=== PATIENT | female | born 1930 | race Caucasian/White ===

== ENCOUNTER → 2016-04-11 | Outpatient (CLI) | payer OTHER ==
[~2016-04-11] MED LIST: AMLODIPINE BESYL5 MG PO; ANORO ELLIPTA1 POW IH; AVAPRO150 M1 PO; Amaryl2 MG PO; BAYER ASPIRIN C81 MG PO; DARVOCET N 1001 TAB PO; DOXYCYCLINE100 MG PO; FLAGYL500 MG PO; GLIMEPIRIDE2 MG PO; HYDR25T PO; JANUVIA100 MG PO; METRONIDAZOLE500 M1 PO; NEURONTIN300 MG PO; NIFEDIPINE ER30 M1 PO; NORVASC10 MG PO; PHENERGAN25 M3 PO; PLAQUENIL200 MG PO; PRAVASTATIN SOD20 MG PO; PRILOSEC20 M1 PO; TOPROL XL50 M1 PO; ZOFRAN4 MG PO; [UNRECOGNIZED DRUG - OTHER] PO
--- NOTE | ~2016-04-11 | PR ---
[place], [place] PROGRESS NOTE NAME: MUMTAZ BRAR [facility] #: [id number] UNIT #: [id number] ROOM: DOCTOR: MATT TysonJANELLE BIRTHDATE: [birth year] DOS: 04/11/2016 CHIEF COMPLAINT: Followup of right great toe ulcer. HISTORY OF PRESENT ILLNESS: The elements: The location is the right great toe at the very tip. She has had it for a couple of months now. She has been coming to the [facility] for 2 weeks now. Initially, there was discomfort associated with it and this is much improved since she has been coming. She thought that the wound appeared to be healed, but she was concerned that when she took a shower today she noted some bloody drainage on her dressing and it appears to be at the bottom of her toe instead of where the initial wound was. She has also noted that the callus has built up quite a bit around it and she is uncomfortable about this. Otherwise, she offers no specific complaints. She did try to get the toe protectors that were suggested to her; however, it is really too small for her toe and she is unable to wear it. PHYSICAL EXAMINATION: VITAL SIGNS: Today shows vital signs are stable. Blood pressure is 160/60, pulse of 60, respirations 16, temperature is 97.8. EXTREMITIES: The wound is essentially almost healed. It is 0.1 x 0.1 x 0.1. There is still some surrounding callus, but it does not appear to be open presently and at the plantar aspect of the toe, there is a small what appears to be possibly an abrasion from tape versus her accidentally bumping it somehow but it is not really open presently, but it looks like it had blood a little bit before. The area was debrided with a #15 blade for just nonviable tissue. Callus was removed only and the wound still appears to be healed underneath it. This is just a selective debridement only. The instrument utilized was a #15 blade. The patient tolerated the procedure well. There was no bleeding at all. ASSESSMENT AND PLAN: Diabetic toe ulceration which appears to be presently healed. She still continues to have recurrent callus formation. She was wearing an opened shoe today, but this is not practical due to the weather, which is very cold at the present time and raining and soon we will have snow, so I did advise her to try to get fitted for diabetic footwear. A prescription was written for this, so she will try to get this obtained. I tried to accommodate the gel cushion that she had bought; however, when I tried to stretch it out or make it a little bit bigger it just became too big and then unpractical for her to use it so in the meantime, we will just keep the area clean, use some Aquaphor for dry skin and keep it protected with a foam just to help prevent trauma to the area and hopefully recurrent callus formation. The patient is to keep this area evaluated every day and we will follow up in 1 week. I suspect she will be discharged next week. [place], [place] PROGRESS NOTE NAME: MUMTAZ BRAR UNIT #: [id number] ROOM: DOCTOR: JANELLE GUTIERREZ M.D. BIRTHDATE: [birth year] JANELLE GUTIERREZ MD CM:SOFY [id number] JANELLE GUTIERREZ M.D. 04/12/16 1247 interface
== END ==
LOC: WOUNDCARE 12:26
DX: E11.621 Type 2 diabetes mellitus with foot ulcer (principal); L97.511 Non-pressure chronic ulcer of other part of right foot limited to breakdown of skin; L84 Corns and callosities

== ENCOUNTER → 2016-04-18 | Outpatient (CLI) | payer OTHER ==
--- NOTE | ~2016-04-18 | PR ---
[place], [place] PROGRESS NOTE NAME: MUMTAZ BRAR [facility] #: [id number] UNIT #: [id number] ROOM: DOCTOR: MATT TysonJANELLE BIRTHDATE: [birth year] DOS: 04/18/2016 Wound care followup. CHIEF COMPLAINT: Followup of right great toe ulcer. HISTORY OF PRESENT ILLNESS: Elements: The location is tip the right great toe. She has had this ulcer for a couple of months now. She has been coming to the Wound Clinic for 3 weeks. The ulcer had been steadily improving, and there is just a little bit of callus noted last week, which was paired down for her. She states that her ulcer is looking quite well. She has not had a buildup of callus as before. She is taking good care of it and keeping it moisturized. She does cover with a foam-type dressing that she uses. This seems to protect her toe. She has, however, noticed some slight redness and a little bit of discomfort with the toe, and she said she had tried to obtain diabetic shoes from [facility]. They are no longer available for this. So she has been using a pair of Sketchers, which she feels are working fairly well. PHYSICAL EXAMINATION: She is afebrile, pulse is 66, respirations 16, blood pressure is a little high at 180/60. The wounds look good. It is not open. There is really no callus. There is no open area. The toe however, has some mild edema and mild erythema. It is not acutely tender to touch, but it is slightly warm, and she has noticed the redness as I stated above. No debridement was done. ASSESSMENT AND PLAN: The ulcer has healed. The callus is stable. No procedure was done today; however, I am concerned about the redness that seemed a little bit more prominent on this visit than it had in the past. There may be some mild underlying cellulitis of the toe. I would like to treat the patient with antibiotics. I did discuss this with her. She has had problems with doxycycline in the past, so we will avoid this, and we will start Keflex 500 t.i.d. just for a week. She does take probiotics daily, and I did ask her to make sure she watches it for any signs of increased redness or pain. She is to report to us immediately. Otherwise, she does tend to keep the toe protected with a protective foam type dressing during the day, but I do want her to take it off at night and not to have anything on the toe. Followup is in one week. [place], [place] PROGRESS NOTE NAME: MUMTAZ BRAR UNIT #: [id number] ROOM: DOCTOR: JANELLE GUTIERREZ M.D. BIRTHDATE: [birth year] JANELLE GUTIERREZ MD CM:SOFY [id number] 5 JANELLE GUTIERREZ M.D. 04/19/165 interface
== END ==
LOC: WOUNDCARE 01:22
DX: E11.621 Type 2 diabetes mellitus with foot ulcer (principal); L97.511 Non-pressure chronic ulcer of other part of right foot limited to breakdown of skin; L84 Corns and callosities

== ENCOUNTER → 2017-03-15 | Outpatient (CLI) | payer MEDICARE | END | disposition home or self-care (01) | LOC: US 13:49 | DX: I65.23 Occlusion and stenosis of bilateral carotid arteries (principal); I25.10 Atherosclerotic heart disease of native coronary artery without angina pectoris; E04.1 Nontoxic single thyroid nodule; I77.9 Disorder of arteries and arterioles, unspecified ==

== ENCOUNTER 2017-04-02 16:52 | Inpatient (IN) | payer MEDICARE ==
[~2017-04-02] VITALS: Ht 152.4 cm; Wt 52.8 kg
--- NOTE | ~2017-04-02 | CON ---
[place], [place] REPORT OF CONSULTATION [id number] UNIT #: [id number] ROOM: 510 DOCTOR: WANDA CARDZOA MD BIRTHDATE: [birth year] DOS: 04/03/2017 HISTORY OF PRESENT ILLNESS: This is an 86-year-old -Polish woman with history of atrial fibrillation for which she has never been anticoagulated. She has chronic GERD, CAD, essential hypertension, hyponatremia, chronic anemia, rheumatoid arthritis, and type 2 diabetes mellitus. She had hysterectomy in the remote past and has not had a heart catheterization in the remote past as well. She has never smoked cigarettes, does not use alcoholic beverages. She was admitted to the Emergency Department because of increasing shortness of breath for about a month or so, which got worse a couple of days prior to this admission. She has a cough which is rather harsh, but she has not been able to expectorate any sputum. She has no fever or chills. No orthopnea. She has slight swelling in the legs. There has not been any palpitations. In fact, she is not aware of her heart beating irregularly. No nausea, vomiting or blood in the stool. She has never had any dark stools either and she has no tendency to fall. She lives at home and is pretty active lady. HOME MEDICATIONS: Include Anoro Ellipta, amlodipine, gabapentin, glimepiride, Plaquenil, Avapro, omeprazole, pravastatin, promethazine and Januvia. She has never been on anticoagulant. PHYSICAL EXAMINATION: GENERAL: The patient is very pleasant, alert. She is slim, alert, oriented. Her complexion looks fine. NECK: JVP is normal. AJR is positive. There is a loud left carotid bruit. HEART: There is no cardiomegaly, no murmurs are present. EXTREMITIES: Pedal pulses are well appreciated. There is a trace pretibial edema. RESPIRATORY: She is mildly tachypneic and has oxygen on. Percussion is normal. Auscultation reveals a lot of crackles, rhonchi, inspiratory, and expiratory wheezes. LABORATORY DATA: BUN 31, creatinine 0.91, potassium is 133. Sodium 141 and magnesium 1.4. Hemoglobin is 9.1 mg/dL. Troponin I level was 0.284, 0.457, and 0.814. DIAGNOSTIC STUDIES: An ECG showed atrial fibrillation with ventricular rate around 99 beats per minute and normal ST-T waves. Monitor has shown tachycardia as well. IMPRESSION: 1. Possible non-ST elevation, acute myocardial infarction. However, she probably has type 2 myocardial infarction, which is due to supply demand imbalance, which may have been caused by a chest infection, hypoxia, tachycardia as well as hypertension. Blood pressure has been rather high. 2. She has acute chest infection. 3. She has mildly elevated jugular venous pressure, but the chest x-ray do not show any pulmonary edema. 4. Her symptoms are most likely due to acute chest infection and atrial [place], [place] REPORT OF CONSULTATION NAME: MUMTAZ BRAR UNIT #: [id number] ROOM: [facility] DOCTOR: WANDA CARDOZA MD BIRTHDATE: [birth year] fibrillation with rapid ventricular rate. RECOMMENDATIONS: 1. Adding calcium channel yoni such as verapamil and diltiazem to control the rate is a good idea. 2. An echocardiogram should be performed and I think it is probably a good idea to perform Lexiscan Cardiolite study in this lady, who has significant carotid artery disease. 3. She has significant carotid artery disease by an ultrasound done on 03/15/2017 which showed 50-69 stenosis on the left side. I thank you on behalf of Dr. Saavedra. WANDA CARDOZA MD CM:CONSTR:REPORT OF CONSULTATION 1048 04/03/172118 interface OSKAR SAAVEDRA MD
--- NOTE | ~2017-04-02 | EKG ---
[place], [place] ELECTROCARDIOGRAM REPORT NAME: MUMTAZ BRAR UNIT #: [id number] ROOM: [facility] DOCTOR: LIZA SHELDON,KELSI BIRTHDATE: [birth year] DOS: 04/02/2017 TIME: 1709. IMPRESSION: 1. Atrial fibrillation with controlled ventricular rate. 2. Nonspecific ST-T changes. 3. Possible left ventricular hypertrophy. 4. Normal QT interval. KELSI DE JESUS MD CM:EKGRPT:ELECTROCARDIOGRAM REPORT [id number] KELSI DE JESUS MD
--- NOTE | ~2017-04-02 | ST ---
[place], [place] EXERCISE STRESS TEST REPORT NAME: MUMTAZ BRAR UNIT #: [id number] ROOM: 510 DOCTOR: OSKAR YAO MD BIRTHDATE: [birth year] DOS: LEXISCAN PORTION OF THE LEXISCAN CARDIOLITE Baseline cardiogram, atrial fibrillation with a controlled ventricular response 0.4 mg, Lexiscan duration of 10 seconds. With Lexiscan, the patient became a little nauseous. No new EKG changes. Blood pressure and heart rate response was normal. Nuclear images will be reported separately. OSKAR YAO MD CM:STRESS:EXERCISE STRESS TEST REPORT [id number] OSKAR YAO MD
--- NOTE | ~2017-04-02 | PR ---
[place], [place] PROGRESS NOTE [id number] UNIT #: [id number] ROOM: 510 DOCTOR: WANDA CARDOZA MD BIRTHDATE: [birth year] DOS: 04/04/[address] Saavedra. SUBJECTIVE: I saw this patient yesterday and she has mildly elevated troponin I level and has acute chest infection, atrial fibrillation. The rate is now controlled. She has no palpitations, has not had any dizziness or orthopnea. Her appetite is poor. OBJECTIVE: GENERAL: She looks well, alert, oriented, complexion is fine. VITAL SIGNS: Pulse is irregular at 84 beats per minute, blood pressure is 157/64. NECK: JVP is normal. LUNGS: She has lot of crackles and rhonchi in both lungs. She has some wheezing. EXTREMITIES: No edema in the lower extremities. IMPRESSION: This patient probably has had non-ST elevation acute myocardial infarction and possible type 2 myocardial infarction. Because of significant atherosclerosis in the carotid arteries, the likelihood of coronary artery disease is significant, therefore a Lexiscan Cardiolite has been scheduled for tomorrow morning, which Dr. Saavedra will perform. No new recommendations. WANDA CARDOZA MD CM:PNTRANS 1206 1356 WANDA CARDOZA MD 04/04/17 1356 interface
[2017-04-02 17:01] VITALS: BP 174/69
[2017-04-02 17:49] LABS: BASO % 0.1 % (0.0-1.0); EOS % 0.1 % (1.0-4.0); HEMATOCRIT 27.6 % (37.0-47.0); HEMOGLOBIN 9.1 g/dl (12.0-16.0); LYMPH # 1.1 10*3/uL (1.3-4.4); LYMPH % 13.8 % (27.0-41.0); MEAN CELL VOLUME 92.9 fl (81.0-99.0); MEAN CORPUSCULAR HGB 30.6 pg (27.0-31.0); MEAN PLATELET VOLUME 10.7 fl (9.6-12.3); MONO # 0.5 10*3/uL (0.1-1.0); MONO % 5.5 % (3.0-9.0); NEUT # 6.5 10*3/uL (2.3-7.9); NEUT % 79.6 % (47.0-73.0); PLATELET COUNT AUTOMATED 189 10*3/uL (130-400); RED BLOOD COUNT 2.97 10*6/uL (4.10-5.10); RED CELL DISTRI WIDTH 13.1 % (0-14.5); WHITE BLOOD COUNT 8.2 10*3/uL (4.8-10.8)
[2017-04-02 17:58] LABS: ACT PARTIAL THROMBO TIME 25.1 SECONDS (20.8-31.5)
[2017-04-02 18:06] LABS: ALBUMIN 2.6 gm/dl (3.1-4.5); ALKALINE PHOSPHATASE 34 U/L (45-117); BUN 31 mg/dl (7-24); CHLORIDE 102 mmol/L (98-107); CREATININE 0.91 mg/dL (0.55-1.02); LIPASE 313 U/L (73-393); POTASSIUM 4.1 mmol/L (3.5-5.1); SGOT/AST 23 IU/L (3-35); SGPT/ALT 23 U/L (12-78); SODIUM 133 mmol/L (136-145); TOTAL PROTEIN 6.3 gm/dL (6.4-8.2)
[2017-04-02 19:12] VITALS: BP 181/71
[2017-04-02 19:27] VITALS: BP 176/68
[2017-04-02 19:43] VITALS: BP 152/55
[2017-04-02 20:00] VITALS: BP 152/55
[2017-04-03] VITALS: BP 130/56
[2017-04-03 05:42] LABS: BUN 31 mg/dl (7-24); CHLORIDE 100 mmol/L (98-107); CHOLESTEROL 160 mg/dL (<200); HDL CHOLESTEROL 60 mg/dl (40-60); LDL CHOLESTEROL 81 mg/dL (9-159); POTASSIUM 3.6 mmol/L (3.5-5.1); SODIUM 136 mmol/L (136-145); TRIGLYCERIDES 95 mg/dl (<150); VLDL CHOLESTEROL 19 mg/dL (6-40)
[2017-04-03 06:11] LABS: BASO % 0.1 % (0.0-1.0); EOS % 0.3 % (1.0-4.0); HEMATOCRIT 29.4 % (37.0-47.0); HEMOGLOBIN 9.8 g/dl (12.0-16.0); LYMPH # 2.7 10*3/uL (1.3-4.4); LYMPH % 29.8 % (27.0-41.0); MEAN CELL VOLUME 93.3 fl (81.0-99.0); MEAN CORPUSCULAR HGB 31.1 pg (27.0-31.0); MEAN CORPUSCULAR HGB CONC 33.3 g/dl (33.0-37.0); MEAN PLATELET VOLUME 11.4 fl (9.6-12.3); MONO # 0.6 10*3/uL (0.1-1.0); MONO % 6.1 % (3.0-9.0); NEUT # 5.7 10*3/uL (2.3-7.9); NEUT % 63.3 % (47.0-73.0); PLATELET COUNT AUTOMATED 207 10*3/uL (130-400); RED BLOOD COUNT 3.15 10*6/uL (4.10-5.10)
[2017-04-03 07:43] LABS: VITAMIN D, 25-HYDROXY 28.2 ng/mL (30-100)
[2017-04-03 08:00] VITALS: BP 143/61
[2017-04-03 12:00] VITALS: BP 120/65
[2017-04-03 16:00] VITALS: BP 144/59
[2017-04-03 20:00] VITALS: BP 160/60
[2017-04-03 20:30] VITALS: BP 158/62
[2017-04-04 00:15] VITALS: BP 166/70
[2017-04-04 06:57] LABS: BASO % 0.2 % (0.0-1.0); EOS % 0.2 % (1.0-4.0); HEMATOCRIT 28.4 % (37.0-47.0); HEMOGLOBIN 9.6 g/dl (12.0-16.0); LYMPH # 2.3 10*3/uL (1.3-4.4); LYMPH % 34.7 % (27.0-41.0); MEAN CELL VOLUME 91.3 fl (81.0-99.0); MEAN CORPUSCULAR HGB 30.9 pg (27.0-31.0); MEAN CORPUSCULAR HGB CONC 33.8 g/dl (33.0-37.0); MEAN PLATELET VOLUME 11.2 fl (9.6-12.3); MONO # 0.4 10*3/uL (0.1-1.0); NEUT # 3.8 10*3/uL (2.3-7.9); NEUT % 58.4 % (47.0-73.0); PLATELET COUNT AUTOMATED 218 10*3/uL (130-400); RED BLOOD COUNT 3.11 10*6/uL (4.10-5.10); RED CELL DISTRI WIDTH 12.9 % (0-14.5); WHITE BLOOD COUNT 6.5 10*3/uL (4.8-10.8)
[2017-04-04 07:17] LABS: BUN 37 mg/dl (7-24); CHLORIDE 96 mmol/L (98-107); CREATININE 1.01 mg/dL (0.55-1.02); POTASSIUM 4.4 mmol/L (3.5-5.1); SODIUM 133 mmol/L (136-145)
[2017-04-04 07:18] LABS: PHOSPHOROUS 3.9 mg/dL (2.5-4.9)
[2017-04-04 08:00] VITALS: BP 157/64
[2017-04-04 12:00] VITALS: BP 150/76
[2017-04-04 16:00] VITALS: BP 121/52
[2017-04-04 20:00] VITALS: BP 137/48
[2017-04-04 20:30] VITALS: BP 140/54
[2017-04-05] VITALS: BP 128/53
[2017-04-05 09:00] VITALS: BP 129/58
[2017-04-05 09:48] LABS: BASO % 0.1 % (0.0-1.0); HEMATOCRIT 25.2 % (37.0-47.0); HEMOGLOBIN 8.7 g/dl (12.0-16.0); LYMPH # 1.6 10*3/uL (1.3-4.4); LYMPH % 14.9 % (27.0-41.0); MEAN CELL VOLUME 89.4 fl (81.0-99.0); MEAN CORPUSCULAR HGB 30.9 pg (27.0-31.0); MEAN CORPUSCULAR HGB CONC 34.5 g/dl (33.0-37.0); MEAN PLATELET VOLUME 11.3 fl (9.6-12.3); MONO # 0.7 10*3/uL (0.1-1.0); MONO % 6.2 % (3.0-9.0); NEUT # 8.3 10*3/uL (2.3-7.9); NEUT % 77.6 % (47.0-73.0); PLATELET COUNT AUTOMATED 208 10*3/uL (130-400); RED BLOOD COUNT 2.82 10*6/uL (4.10-5.10); RED CELL DISTRI WIDTH 12.7 % (0-14.5); WHITE BLOOD COUNT 10.7 10*3/uL (4.8-10.8)
[2017-04-05 10:13] LABS: CREATININE 1.15 mg/dL (0.55-1.02); PHOSPHOROUS 3.6 mg/dL (2.5-4.9); POTASSIUM 3.7 mmol/L (3.5-5.1)
[2017-04-05] MEDS ORDERED: MUCINEX1200 M1 PO (11:00)
[2017-04-05] MEDS ORDERED: XARE20MG PO (11:00)
[2017-04-05] MEDS ORDERED: TAMIFLU 75MG CA75 MG PO (11:00)
[2017-04-05] MEDS ORDERED: METOPROLOL25 MG PO (11:00)
[2017-04-05] MEDS ORDERED: VENTOLIN 02.5 MG/3 M INH (12:46)
== END 2017-04-05 12:45 | disposition home health service (06) | DRG 280 ==
LOC: ED 16:52 → 5E 18:49 → EDHOLD 18:49 → 5E 18:58
PROVIDERS: Emergency Medicine; Internal Medicine Nephrology; Student in an Organized Health Care Education/Training Program
PROC: 3E073KZ Introduction of Other Diagnostic Substance into Coronary Artery, Percutaneous Approach (ICD-10-PCS; principal; 2017-04-05)
PROC: 4A02XM4 Measurement of Cardiac Total Activity, External Approach (ICD-10-PCS; principal; 2017-04-05)
DX: I21.4 Non-ST elevation (NSTEMI) myocardial infarction (principal); J10.00 Influenza due to other identified influenza virus with unspecified type of pneumonia; I50.33 Acute on chronic diastolic (congestive) heart failure; E44.0 Moderate protein-calorie malnutrition; E87.1 Hypo-osmolality and hyponatremia; I11.0 Hypertensive heart disease with heart failure; I48.2 Chronic atrial fibrillation; I08.1 Rheumatic disorders of both mitral and tricuspid valves; R65.10 Systemic inflammatory response syndrome (SIRS) of non-infectious origin without acute organ dysfunction; I08.3 Combined rheumatic disorders of mitral, aortic and tricuspid valves; I65.23 Occlusion and stenosis of bilateral carotid arteries; E55.9 Vitamin D deficiency, unspecified; D64.9 Anemia, unspecified; E11.9 Type 2 diabetes mellitus without complications; I25.10 Atherosclerotic heart disease of native coronary artery without angina pectoris; M06.9 Rheumatoid arthritis, unspecified; K21.9 Gastro-esophageal reflux disease without esophagitis; Z68.22 Body mass index [BMI] 22.0-22.9, adult; Z90.710 Acquired absence of both cervix and uterus; Z82.49 Family history of ischemic heart disease and other diseases of the circulatory system; Z79.899 Other long term (current) drug therapy; Z79.84 Long term (current) use of oral hypoglycemic drugs

== ENCOUNTER 2017-04-09 14:03 | Inpatient (IN) | payer MEDICARE ==
[2017-04-09] VITALS (7 sets, daily range): BP systolic 155–189; BP diastolic 66–120
[~2017-04-09] VITALS: Ht 152.4 cm; Wt 51.7 kg
--- NOTE | ~2017-04-09 | PR ---
[place], [place] PROGRESS NOTE [id number] UNIT #: [id number] ROOM: 524 DOCTOR: OSKAR YAO MD BIRTHDATE: [birth year] DOS: 04/18/2017 SUBJECTIVE: The patient's cardiac status appears to be stable. Heart rate was still bouncing to 90s, so increase the Lopressor to 100 in the morning and 75 at night. Cardizem is completely discontinued. She is in atrial fibrillation, rates like 60s-70s. OBJECTIVE: VITAL SIGNS: Blood pressure is 128/64. NECK: Supple, no JVD. LUNGS: Clear. HEART: Sounds are irregularly irregular. ABDOMEN: Soft, nontender. NEUROLOGIC: Appears to be stable. LABORATORY DATA: Shows hemoglobin 9.6, hematocrit 28.5. Electrolytes are normal. Sodium 134 and creatinine is 1.09. IMPRESSION: Persistent atrial fibrillation. Recent stress test was normal. Sick sinus syndrome, hypertension. PLAN: Continue with the present medication. Continue anticoagulation and we will follow up. OSKAR YAO MD CM:PNMARGE [phone] [id number] OSKAR YAO MD 04/18/178 interface
--- NOTE | ~2017-04-09 | PR ---
[place], [place] PROGRESS NOTE NAME: MUMTAZ BRAR [facility] #: [id number] UNIT #: [id number] ROOM: 524 DOCTOR: OSKAR YAO MD BIRTHDATE: [birth year] DOS: 04/16/2017 SUBJECTIVE: The patient is an 86-year-old, very well known to me. The patient was seen by Dr. Jones who was covering for me and saw the patient for me as a consult. The patient with persistent atrial fibrillation, heart rate was significantly increased. The patient was started on diltiazem 90 t.i.d. The patient unfortunately had a 3.7 pause. The patient was already on Cardizem and beta blockers, now she is back into atrial fibrillation, rate is 60s. OBJECTIVE: VITAL SIGNS: Blood pressure is stable. LUNGS: Clear. HEART: Sounds are irregularly irregular. ABDOMEN: Soft, nontender. NEUROLOGIC: Stable. IMPRESSION: The patient with sick sinus syndrome with variable response because she had a long pause, I am going to discontinue the digoxin, decrease the Cardizem instead of 90 q.8-30 q.8 and then switched to Cardizem-CD 120, keep the heart rate above 60 all the time. If needed, the patient may end up with a permanent pacemaker because of sick sinus syndrome, recent stress test was normal. OSKAR YAO MD CM:PNTRANS 0719 0741 OSKAR YAO MD 04/16/17 0741 interface
--- NOTE | ~2017-04-09 | PR ---
[place], [place] PROGRESS NOTE NAME: MUMTAZ BRAR UNIT #: [id number] ROOM: 524 DOCTOR: WANDA CARDOZA MD BIRTHDATE: [birth year] DOS: SUBJECTIVE: The patient feels better. She has no palpitations or breathing difficulty. She has a cough with very little purulent expectoration. She has not had any swelling ____ eating fine. OBJECTIVE: GENERAL: She looks well, looks pale. VITAL SIGNS: Pulses irregular with a controlled rate. NECK: JVP is +8 cm with positive AJR. LUNGS: Breath sounds are diminished with somewhat crackles. EXTREMITIES: No edema in lower extremity. IMPRESSION: 1. Atrial fibrillation with controlled rate. 2. Probably some degree of right heart failure. 3. Same medications. I saw this on behalf of Dr. Saavedra. WANDA CARDOZA MD CM:PNTRANS 1205 1336 WANDA CARDOZA MD 04/18/17 0241 interface
--- NOTE | ~2017-04-09 | PR ---
[place], [place] PROGRESS NOTE NAME[id number] UNIT #: [id number] ROOM: 524 DOCTOR: ELIZABETH ANDUJAR DO BIRTHDATE: [birth year] DOS: 04/17/2017 SUBJECTIVE: The patient was seen and examined at bedside, continues to improve, is stable at this point from a respiratory perspective. The patient says she has been coughing, but is not any worse and has no new complaints today and reports that her shortness of breath is resolving. The patient denies chest pain this morning. OBJECTIVE: VITAL SIGNS: Temperature 97.5, pulse is 64, respiratory rate is 22, blood pressure 120/68 and pulse ox 97 on 2 liters nasal cannula. HEENT: No acute changes. Eyes are clear. No injection. Nares are patent. Mucous membranes are moist. CARDIOVASCULAR: S1, S2 are audible. No murmurs, gallops or rubs. NECK: Supple, nontender. LUNGS: Mild rales were noted in bilateral lung bases without any wheezing appreciated. ABDOMEN: Soft and nontender. EXTREMITIES: No edema was appreciated or erythema, clubbing or cyanosis. NEUROLOGIC: Negative with no focal deficits. LABORATORY DATA: White count 12.3, hemoglobin 8.9, hematocrit 26.7, platelets count 419. Chemistries: Sodium 134, potassium 5.2, chloride 97, bicarb 28, BUN 68 with a creatinine of 1.27, glucose is 190, magnesium was 1.4, albumin 2.1. INR 1.2. Sputum culture was positive for strep pneumo. Stool occult was positive for occult blood. Blood cultures were negative and flu was also negative. IMAGING: A chest x-ray was obtained this morning. Findings showed no interval change, mild pleural effusions bilaterally; however, that is stable from previous exams IMPRESSION: 1. Resolving pleural fluid. The patient remains stable. 2. Atrial fibrillation. 3. Mild thrombocytopenia with hyperkalemia. PLAN OF TREATMENT: From pulmonary standpoint, the patient is stable. No need to adjust current respiratory therapy. Recommend that the patient to be discharged on 20 of Lasix orally and there will be no need for potassium supplementation. The patient will likely be discharged tomorrow as long as she continues to improve. We are still waiting on Refund Clerk to acquire precertification for her to go to SNF for rehab. ELIZABETH ANDUJAR DO [place], [place] PROGRESS NOTE NAME: CORINABAOMUMTAZ D UNIT #: [id number] ROOM: 4 DOCTOR: ELIZABETH ANDUJAR DO BIRTHDATE: [birth year] BRETT DALTON MD CM:PNMARGE [id number] 1516 ELIZABETH ANDUJAR DO 04/17/17 1801 interface
--- NOTE | ~2017-04-09 | CON ---
[place], [place] REPORT OF CONSULTATION [id number] UNIT #: [id number] ROOM: 524 DOCTOR: JACQUELINE HOLLIS MD BIRTHDATE: [birth year] DOS: 04/12/2017 HISTORY OF PRESENT ILLNESS: The patient is 86 years old, who has presented with a chief complaint of GI bleed, undergone investigation. The patient with drop in H and H, status post transfusion. The patient has been recently started on aspirin and Xarelto, both have been placed on hold. The patient with history of colonoscopy last year by Dr. Lomeli. Her labs from 04/05/2017 to now has been reviewed. Her CBC used to be 8 and 25 on 04/05/2017, are essentially the same 8.9 and 26 and now status post transfusion, the last H and H is 8.9 and 26. The patient's differential is normocytic. H and H post-immediate transfusion increased to 10 and 29, which is factitious because of too early draw. Perhaps today, more realistic H and H was noticed, which was done. Transfusion was done for drop in hemoglobin and hematocrit to 7 and 22. PAST MEDICAL HISTORY: Atrial fibrillation, coronary artery disease, GERD, hypertension, diabetes, and rheumatoid arthritis. PAST SURGICAL HISTORY: Cardiac catheterization and hysterectomy. SOCIAL HISTORY: Nonsmoker, nonalcohol consumer. FAMILY HISTORY: Noncontributory except coronary artery disease and hypertension. ALLERGIES: Allergies to no known medications. MEDICATIONS: Medication list has been reviewed, at home, it has been included Xarelto and aspirin, which is on hold. REVIEW OF SYSTEMS: HEENT: Denies double vision, blurred vision. RESPIRATORY: Admits to shortness of breath. Dr. Liu has been addressing that department for pulmonary medicine. CARDIOVASCULAR: Known history of atrial fibrillation. DIGESTIVE SYSTEM: Black tarry stool. Drop in H and H. Xarelto and aspirin, which is on hold. PHYSICAL EXAMINATION: VITAL SIGNS: Stable. Blood pressure stable. Heart rate stable. GENERAL: A well preserved for the age. HEENT: Head normocephalic, nontraumatic. Mouth and buccal mucosa benign. She ____ her own teeth. Mouth and buccal mucosa benign. NECK: Supple. No thyromegaly, no cervical lymphadenopathy. CHEST: Symmetric anatomy, decreased air in general. HEART: Irregular irregularity, atrial fibrillation is known. No rub. ABDOMEN: Soft. No hepato-organomegaly. Bowel sounds present. EXTREMITIES: No cyanosis, no pedal edema. NEUROLOGIC: Appears to be alert and oriented to time, place, person. Daughter at the bedside. [place], [place] REPORT OF CONSULTATION NAME: MUMTAZ BRAR UNIT #: [id number] ROOM: 524 DOCTOR: JACQUELINE HOLLIS MD BIRTHDATE: [birth year] IMPRESSION AND PLAN: 1. Gastrointestinal bleed, Xarelto and aspirin has been on board. 2. Atrial fibrillation. Other adjunctive diagnoses as outlined in paragraph of past medical and surgical history. I am going to proceed with endoscopic assessment of upper GI tract due to the sudden drop in H and H, ____ she is status post transfusion. Thank you very much indeed. JACQUELINE HOLLIS MD CM:CONSTR:REPORT OF CONSULTATION 1624 04/13/17 0344 interface
--- NOTE | ~2017-04-09 | PR ---
[place], [place] PROGRESS NOTE NAME: MUMTAZ BRAR [facility] #: [id number] UNIT #: [id number] ROOM: 524 DOCTOR: KRYSTLE CRUZ MD,BRETT BIRTHDATE: [birth year] DOS: 04/15/2017 SUBJECTIVE: The patient had been noted comfortable at this time without any distress. She stated reduction symptoms of shortness of breath and cough. Denies any wheezing. She stated the heart problem. The patient has not been improving at this time and described to be worse. OBJECTIVE: VITAL SIGNS: For the patient, which has been recorded. The patient shows the temperature noted as normal. The respiratory rate 20, heart rate 62 and previous noted 135 beats per minute, atrial fibrillation with rapid ventricular response. The blood pressure 150/60 noted this morning. Pulse oxygen saturation recorded on 2.5 L cannula 97% saturation. HEENT: Examination shows no new change. NECK: Supple. CARDIOVASCULAR: S1, S2 is audible. LUNGS: The patient was noted without any wheezing or crackles. ABDOMEN: Soft, nontender. EXTREMITIES: The patient was noted without any acute edema. MUSCULOSKELETAL: Does not show any acute deformities. SKIN: Visible skin. No lesions or rashes. CENTRAL NERVOUS SYSTEM: Noted intact. LABORATORY DATA: The chest x-ray done this morning shows improvement in the aeration of the lung with reduction of the pleural fluid as compared to the chest x-ray on 04/13/2017. CBC with WBC count 14,000, hemoglobin 10.3, hematocrit 30.6, platelet count 505,000. CMP of the patient, BUN 64, creatinine 1.1, sodium 134. Blood culture showed no bacterial growth from the 2nd of this month. IMPRESSION: 1. The patient who has been noted with continued improvement and resolution of the respiratory symptom with acute streptococcal pneumonia, bilateral pleural fluid secondary fluid overload, congestive heart failure, combination as well. 2. ____ which has been noted partially improved as well. 3. Atrial fibrillation with intermittent rapid ventricular response. 4. Hyponatremia was also improving. PLAN OF TREATMENT: Continue antibiotics, bronchodilators and anticoagulation and other treatment. Lasix at this time intravenously will not be further necessary. It could be given in the form of the oral Lasix. Continue other supportive therapy, plan of management and care. Maximize the respiratory status as well. Usual care, other plan of management. [place], [place] PROGRESS NOTE NAME: MUMTAZ BRAR [place] UNIT #: [id number] ROOM: 524 DOCTOR: BRETT ABRAMS MD BIRTHDATE: [birth year] BRETT DALTON MD CM:PNMARGE 1229 20 BRETT CRUZ MD 04/15/172220 interface
--- NOTE | ~2017-04-09 | PR ---
[place], [place] PROGRESS NOTE NAME: MUMTAZ BRAR UNIT #: [id number] ROOM: 524 DOCTOR: BRETT ABRAMS MD BIRTHDATE: [birth year] DOS: 04/16/2017 SUBJECTIVE: She continued to do well with reduction of respiratory symptoms. Coughing has been almost improved with the shortness of breath resolving. The patient's tachycardia and atrial fibrillation was also slowly resolving. She denies symptoms of chest pain this morning at the time of assessment, sitting on side of the bed. OBJECTIVE: VITAL SIGNS: For the patient which has been recorded showed normal temperature, respiratory rate 20, heart rate of 100-64, blood pressure 150/50-126/45. The pulse oxygen saturation of the patient recorded on 2 liters nasal cannula 93% saturation. HEENT: Examination shows no acute change. NECK: Supple. CARDIOVASCULAR: S1, S2 is audible. LUNGS: The patient was noted without any wheeze or crackles at the present time. ABDOMEN: Soft and nontender. LABORATORY DATA: BMP today: BUN 71, creatinine 1.24. Glucose 210. Sodium 130, potassium 5.5. Digoxin level noted 1.64. CBC this morning showed WBC count 15.3, hemoglobin 8.9, Hematocrit 26.4, platelet count 455,000. IMPRESSION: 1. The patient who has been currently noted with resolving pleural fluid, the patient radiologically and clinically with marked improvement and resolution of the acute streptococcal pneumonia was continued. 2. Atrial fibrillation with intermittent rapid ventricular response as well. 3. Mild thrombocytopenia with hyperkalemia. PLAN OF TREATMENT: No changes from the pulmonary standpoint. Continue oral Lasix for the patient which was ordered for this patient. Potassium management, hyperkalemia per Nephrology services with appropriate medications. Other supportive plan of management and care plan. [place], [place] PROGRESS NOTE NAME: MUMTAZ BRAR UNIT #: [id number] ROOM: 524 DOCTOR: BRETT ABRAMS MD BIRTHDATE: [birth year] BRETT DALTON MD CM:PNAMRGE [id number] BRETT CRUZ MD 04/16/17 2240 interface
--- NOTE | ~2017-04-09 | PR ---
[place], [place] PROGRESS NOTE NAME: MUMTAZ BRAR UNIT #: [id number] ROOM: 524 DOCTOR: BRETT ABRAMS MD BIRTHDATE: [birth year] DOS: 04/17/2017 PULMONARY PROGRESS NOTE SUBJECTIVE: She has been noted comfortable at this time without any acute distress. Denies symptoms of chest pain or hemoptysis. The shortness of breath and wheezing continue to resolve progressively. The patient denies any symptoms of palpitations. The patient was seen and examined with [id number] encounter. The history was confirmed. The physical exam was performed. All the lab of the patient available were reviewed. The note done by the medical affairs leader was approved. This morning, the patient was sitting comfortably on the bed. OBJECTIVE: VITAL SIGNS: Reviewed to be normal. The pulse oxygen saturation on 2-liter nasal cannula was 97% saturation. LUNGS: Noted without any wheezing or crackles at the present time. ABDOMEN: Soft and nontender. EXTREMITIES: Without any edema. LABORATORY DATA: Chest x-ray, which was done this morning on the patient was noted with continued progressive resolution and improvement in the pleural fluid. CBC of the patient noted with mild anemia with leukocytosis and mild elevation of platelet count. BUN 68, creatinine 1.27. Sodium was noted as 134 and potassium 5.2. IMPRESSION: 1. The patient with resolving bilateral pleural fluid with current diuretic therapy, which is oral, with stable mild acute kidney injury, hyperkalemia, and hyponatremia. 2. Resolving acute pneumonia, non-aspiration, from streptococcal pneumonia post viral infection with influenza infection. PLAN OF MANAGEMENT: The patient could be considered for home discharge or the [facility] facility placement with physical therapy, consultation and discussion with the family member by the social work job titles. Pleural fluid was noted small and would not require any intervention. Upon discharge 20 mg Lasix could be used at least for the next 2-3 weeks to resolve the pleural fluid. [place], [place] PROGRESS NOTE NAME: MUMTAZ BRAR UNIT #: [id number] ROOM: 524 DOCTOR: BRETT ABRAMS MD BIRTHDATE: [birth year] BRETT DALTON MD CM:PNTRANS [id number] BRETT CRUZ MD 04/17/17 2342 interface
--- NOTE | ~2017-04-09 | PR ---
[place], [place] PROGRESS NOTE NAME: [id number] UNIT #: [id number] ROOM: 524 DOCTOR: KRYSTLE CRUZ MD,BRETT BIRTHDATE: [birth year] DOS: 04/14/2017 SUBJECTIVE: She has been noted comfortable at this time. Cough has been noted intermittently. There were no symptoms of chest pain or hemoptysis. OBJECTIVE: VITAL SIGNS: Recorded showed the temperature noted as normal. Respiratory rate recorded as 20, heart rate of 127-110 with atrial fibrillation, rapid ventricular response, blood pressure 130/73 and 33/60. The pulse oxygen saturation 2-1/2 liters cannula was 98% saturation. HEENT: Examination shows no acute change. NECK: Supple. CARDIOVASCULAR: S1, S2 is audible. LUNGS: The patient was noted without any wheezing or crackles. Breaths are noted diminished in the lower portion of the lungs. ABDOMEN: Soft, nontender. EXTREMITIES: The patient was noted without any acute edema, clubbing or cyanosis. LABORATORY DATA: CBC today: WBC count elevated to 17.3, hemoglobin 8.7 and hematocrit 25.6, platelet count 465,000. CMP: BUN 70, creatinine 1.28. IMPRESSION: Bilateral pleural fluid with acute streptococcal pneumonia noted with congestive heart failure, atrial fibrillation with rapid ventricular response. PLAN OF MANAGEMENT: Continue diuretic therapy with the patient as ordered. Continuation of antibiotics and other plan of management. The chest x-ray of the patient to be repeated in the morning for reassessment of the progression of the pleural fluid. All other plan of therapy to be continued as well. No changes in the treatment from the pulmonary standpoint will be needed. Continue to maximize the cardiac management. BRETT DALTON MD CM:PNTRANS [phone] BRETT CRUZ MD 04/15/17140 interface
--- NOTE | ~2017-04-09 | PR ---
[place], [place] PROGRESS NOTE NAME: MUMTAZ BRAR [facility] #: [id number] UNIT #: [id number] ROOM: 524 DOCTOR: BRETT ABRAMS MD BIRTHDATE: [birth year] DOS: 04/12/2017 SUBJECTIVE: She has been noted with partial reduction of shortness of breath, still noted shortness of breath with exertion. Coughing was still noted intermittently. There were no symptoms of chest pain or any abdominal pain. The patient denies any edema or pain of the lower extremities. OBJECTIVE: VITAL SIGNS: For the patient recorded as normal temperature, respiratory rate of 18, heart rate of 113 with tachycardia, blood pressure 140/74-133/88. Intake for the patient 940, output 600 mL. Pulse oxygen saturation on 2.5 half liter nasal cannula was 97% saturation. HEENT: Head was atraumatic. Eyes nonicterus. NECK: Supple. CARDIOVASCULAR: S1, S2 is audible. LUNGS: The patient was noted with decreased breath sounds still noted in the lungs bilaterally. There was no wheezing; however, there were no crackles present at this time. ABDOMEN: Soft, nontender. EXTREMITIES: Without any acute edema. SKIN: Visible skin, no lesions or rashes. MUSCULOSKELETAL: No deformity. CENTRAL NERVOUS SYSTEM: Cranial nerves 2-12 intact without any focal deficit. LABORATORY DATA: Culture of the sputum was noted with heavy growth of gram-positive cocci strep pneumonia was stated with pending sensitivity results. Urine for legionella antigens were noted negative. BMP for the patient was noted with BUN 38, creatinine 1.08, glucose 224. Sodium 130. Albumin 2.1. The chest x-ray that I ordered, 2-view, which was personally reviewed shows evidence of a small to moderate pleural fluid bilaterally noted; however, there were no findings of congestive heart failure. Reduction of previous pulmonary infiltration was noted. IMPRESSION: 1. The patient has been noted persistent acute respiratory failure with bilateral pleural fluid with fluid overload, congestive heart failure, combination. 2. Resolving acute exacerbation without acute streptococcal pneumonia as well. 3. The patient with cough, which has been noted partially decreased. 4. Hyponatremia, multifactorial. 5. Resolving acute kidney injury. 6. Recent post-influenza infection resulting in acute streptococcal pneumonia. PLAN OF MANAGEMENT: The patient has been started on diuretic, Lasix 40 mg daily with close monitoring as well. Continuation of the bronchodilators with oxygen supplementation. Monitor respiratory status closely. Monitoring of the pleural fluid either with the chest x-ray or ultrasound assessment. Usual care, other supportive plan of management and other care. Additional treatment changes made based on progression of the illness. [place], [place] PROGRESS NOTE NAME: JOSUÉGAYLEMUMTAZ D UNIT #: [id number] ROOM: 524 DOCTOR: BRETT ABRAMS MD BIRTHDATE: [birth year] BRETT DALTON MD CM:SOFY [phone] BRETT CRUZ MD 04/12/17 1627 interface
--- NOTE | ~2017-04-09 | CON ---
[place], [place] REPORT OF CONSULTATION NAME: MUMTAZ BRAR [facility] #: [id number] UNIT #: [id number] ROOM: 524 DOCTOR: BRETT ABRAMS MD BIRTHDATE: [birth year] DOS: 04/10/2017 PULMONARY CONSULTATION, EVALUATION, AND MANAGEMENT CONSULTATION REQUESTED BY: Hospitalist service. REASON FOR CONSULTATION: For assessment of current abnormal finding on CT scan of chest with pneumonia, pleural fluid and others. Part of the history was obtained from the patient. Rest from the patient's one of the daughters who was present in the room with the patient at the time of the assessment. HISTORY OF PRESENT ILLNESS: This is an 86-year-old white female who has been recently admitted to the hospital and treated under hospitalist service from 03/29/2017 to 04/05/2017. The patient was admitted to the hospital and treated for influenza A infection. The patient was subsequently discharged home. The patient had been brought to the hospital by the family members. The patient reported that she has not been better, at the time of discharge noted with increased respiratory symptom. During the last admission, she was noted with atrial fibrillation, rapid ventricular response. The patient's shortness of breath has been noted to be worsening in the last 24 hours as per daughter with increased cough, noted chest congestion, intermittently cough was noted, but there was no sputum expectoration reported. There were no symptoms of hemoptysis. The patient denies symptoms of chest pain. The patient was also complaining of general weakness and stated that she was not feeling well. The patient denies symptoms of edema or pain of the lower extremities. REVIEW OF SYSTEMS: CONSTITUTIONAL SYMPTOMS: The patient reported symptoms of fatigue and tiredness. There were no symptoms reported of fever or chills. EYES: Denies any dryness, burning, discharge, or redness. EARS, NOSE, AND THROAT: Denies sore throat, hoarseness, otalgia, postnasal drainage, or epistaxis. CARDIOVASCULAR: Denies any anginal pain, edema, pain of the lower extremities reported. GASTROINTESTINAL: Denies dysphagia, nausea, vomiting, diarrhea, abdominal pain, hematemesis, melena, or hematochezia. SKIN: Denies any lesions or rashes. CENTRAL NERVOUS SYSTEM: General weakness and fatigue was noted without any focal neurologic deficit. The remaining systems were reviewed and they were noted all negative. PAST MEDICAL HISTORY: Reported as: 1. Diagnosis of a recent influenza A infection, treated recently in end of March 2017 admission. 2. Coronary artery disease. 3. Gastroesophageal reflux disease. 4. Essential hypertension. [place], [place] REPORT OF CONSULTATION NAME: MUMTAZ BRAR UNIT #: [id number] ROOM: 524 DOCTOR: BRETT ABRAMS MD BIRTHDATE: [birth year] 5. History of rheumatoid arthritis. 6. Type 2 diabetes mellitus. SOCIAL HISTORY: The patient has been reported as . She has 2 children. There was no history of alcohol use, illicit drug use, or any tobacco use reported from the past. PAST SURGICAL HISTORY: Described as: 1. Partial hysterectomy. 2. Cardiac catheterization. FAMILY HISTORY: The patient's father at the age of 72 from complications to cerebral hemorrhage. Mother at the age of 7070 years old with complication related to myocardial infarction. HOME MEDICATIONS: Reported at the time of admission as use of Norvasc, Neurontin, Amaryl, Plaquenil, Avapro, Prilosec, pravastatin, Phenergan, Januvia, and Anoro Ellipta. DRUG ALLERGIES: Noted for no known drug allergies. PHYSICAL EXAMINATION: GENERAL: An 86-year-old white female who has been noted with intermittent coughing, dry and chest congestion at the time of this assessment. She does not show any signs of acute respiratory distress, receiving oxygen supplementation nasal cannula. VITAL SIGNS: Height for the patient were recorded as 5 feet, weight of 114 pounds, BMI 22.4. Vital signs of the patient, which has been recorded in the past 24 hours shows the temperature as normal, respiratory rate 18-20, heart rate 89-117 with atrial fibrillation, blood pressure on admission recorded 180/66 and this morning at the time of the assessment of the patient at 8:00 was 149/65. Intake for the patient is 1420 mL, output 700 mL. The pulse oxygen saturation on 2-liter nasal cannula recorded 96% saturation and on room air at admission was 99% saturation of oxygen. HEENT: Examination shows head was atraumatic. Eyes, nonicterus. Oral mucosa was moist. NECK: Supple. Mild elevation of JVD was also noted. CARDIOVASCULAR: S1, S2 audible, with tachycardia, irregular heartbeat. LUNGS: The patient was noted with decreased breaths in the lower portion of the lung and scattered crackles without any wheezing. ABDOMEN: Noted flat, soft, and nontender, without any tenderness. The bowel sounds are present. MUSCULOSKELETAL: The patient was not noted with any obvious deformities. SKIN: No lesions or rashes. CENTRAL NERVOUS SYSTEM: The patient is intact without any gross focal neurologic deficit. LABORATORY DATA: Influenza A and B nasal washing antigen that was done yesterday was noted negative at that time, which were noted on previous admission on 04/02/2017 as positive for influenza A antigen. The BMP of the [place], [place] REPORT OF CONSULTATION NAME: MUMTAZ BRAR UNIT #: [id number] ROOM: 524 DOCTOR: KRYSTLE CRUZ MD,[facility] BIRTHDATE: [birth year] patient that was done on 04/04/2017, BUN 37 at that time, creatinine was normal, sodium 133. CBC of the patient that was done on 04/05/2017 with hemoglobin 8.7, hematocrit 25.5, WBC count normal, platelet count were normal. BMP at the time of the discharge, BUN of 52, creatinine 1.15, sodium 130 noted, magnesium 1.4. The blood culture from 04/02/2017 reviewed to be negative as well. The lactic acid of the patient on 04/09/2017 on this admission 1.6, normal. INR 1.4, which is subtherapeutic. CBC of the patient on 04/09/2017, WBC count 18.7, hemoglobin 9.3, hematocrit 27.2, platelet count at 395,000. The CMP of the patient on 04/09/2017, glucose 207, BUN 61, creatinine 1.08. Sodium 124. Albumin 2.8. The troponin on this patient that was done, the first set was negative, second set 0.04 yesterday as well, minimally elevated, and the third set auto tune up mechanic today was negative. INR today noted 1.2. CBC this morning, WBC count 14.7, hemoglobin 7.7, hematocrit 22.6, platelet count of 347,000 with 81% segmented neutrophils. DIAGNOSTIC STUDIES: The review of the radiology data was personally done. The chest x-ray of the patient that was done only 1 view on 04/02/2017 was the only x-ray from past admission that was noted essentially without any acute abnormalities. Chest x-ray of the patient that was done on 04/09/2017 shows finding of acute congestive heart failure was noted with associated pleural fluid as a new finding as compared to the previous chest x-ray of the patient done on last admission on 04/02/2017. CT scan of the chest was also done on this patient on this admission that I have personally reviewed as well independently from the PACS images. The CT scan was done without contrast. It shows evidence of a moderate sized right and small to moderate left pleural fluid with increased interstitial edema was also noted. Multiple areas of tree-in-bud appearance was also noted in the upper lungs. A 3 mm nodule was noted in the right middle lobe as well and 2 granulomas possibly were also suspected in the right lung as well. IMPRESSION: 1. The patient who has been currently admitted to the hospital with noted worsening of the respiratory status with interval development of bilateral pleural fluid, current tree-in-bud appearance and interstitial infiltration in the lungs, combination most likely for lower congestive heart failure superimposed with bacterial infection is very likely. 2. Hyponatremia, most likely secondary to third spacing with congestive heart failure and pleural fluid would be considered very likely. 3. Azotemia with intravascular volume depletion. 4. Current IV fluid, mostly resulting in some fluid overload possibly as well. 5. The patient with abnormal BUN and creatinine also noted. The possible consideration of the current tree-in-bud appearance in this patient is to be considered as a possibility of acute pneumonia in the patient, which could be seen as the Staphylococcus aureus. 5. Atrial fibrillation with intermittent rapid ventricular response as well. PLAN AND RECOMMENDATIONS: The patient has been getting Xarelto, thoracentesis certainly could not be done until Xarelto remains for at least 24 hours in the patient. The patient's daughter was noted quite upset, stated that the patient had not been getting the care that was supposed to be given in the hospital. I [place], [place] REPORT OF CONSULTATION NAME: MUMTAZ BRAR UNIT #: [id number] ROOM: 524 DOCTOR: BRETT ABRAMS MD BIRTHDATE: [birth year] have told her that the patient could be transferred to another facility of their choice for further continued assessment and care. The patient has already been consulted by the Nephrology services, was pending to be seen for the assessment of the hyponatremia. Continuation of the vancomycin was advised until MRSA or other infection is excluded in this patient appropriately. The 3 mm nodule noted in the right mid lung may not require any much assessment except followup CT scan, possibly to be considered in 6 months and then if it remains the same no further followup would be recommended. Consider discontinuation of diuretics and use of the Lasix to reduce the fluid overload in this patient as well and possibly resolve the pleural fluids. Cardiology assessment will be recommended again for medical management of atrial fibrillation with recurrent rapid ventricular response as well. Oxygen supplementation to maintain oxygen saturation 92% or greater. Sputum for Gram stain and culture could be done if the patient remains in the hospital. She has been offered the medication for symptomatic management of current cough such as Robitussin with Codeine, but the patient does not wish to do that. She has been already started on the Mucinex that will be continued. Bronchodilator will be continued to help mobilize the secretion from the airways as well. Other supportive therapy, plan of management and care plan. Usual treatment and other Care plan. The nurse was informed to contact the primary care physician of this patient for consideration of transfer to another facility as per the patient's family choice immediately. Thanks for allowing me to participate in the care of this patient. BRETT DALTON MD CM:CONSTR:REPORT OF CONSULTATION 1401 04/11/17 0113 interface
--- NOTE | ~2017-04-09 | PR ---
[place], [place] PROGRESS NOTE NAME: MUMTAZ BRAR [facility] #: [id number] UNIT #: [id number] ROOM: 524 DOCTOR: KRYSTLE CRUZ MD,BRETT BIRTHDATE: [birth year] DOS: 04/13/2017 SUBJECTIVE: She has been noted comfortable at this time, but still complaining of shortness of breath. The coughing has been decreasing. At this time were are noted [id number] and nonproductive. There were symptoms of chest pain. She was continued on intravenous antibiotic as well. OBJECTIVE: VITAL SIGNS: For the patient which were recorded. The patient shows the temperature as normal, respiratory rate 20, heart rate 97, blood pressure 128/64-121/61. HEENT: Showed no acute change. NECK: Supple. CARDIOVASCULAR: S1, S2 audible. LUNGS: Noted with decreased breath sounds noted in the lower portion of the lungs. Scattered crackles in still present. ABDOMEN: Soft, nontender. EXTREMITIES: Without any acute edema. SKIN: No lesions or rashes. MUSCULOSKELETAL: No deformities. CENTRAL NERVOUS SYSTEM: Cranial nerves 2-12 are intact. LABORATORY DATA: CMP of the patient that was done this morning, BUN 51, creatinine 1.14. Glucose 241, sodium 130, chloride of 97. CBC this morning, WBC count 13.2, hemoglobin 9.7, hematocrit 28.7, platelet count 484,000. Culture of the sputum finalized as heavy growth of strep pneumonia noted pansensitive species. The patient underwent GI assessment. The patient just noted with gastritis and hiatal hernia. IMPRESSION: 1. The patient was being currently noted with acute pneumonia streptococcal after the acute influenza infection. 2. Bilateral pleural fluid secondary to the congestive heart failure. 3. Hyponatremia, multifactorial. 4. Decreased hemoglobin and hematocrit. EGD and gastritis, hernia as well with the EGD, but that was completed yesterday. 5. Acute respiratory failure secondary to the acute pneumonia. PLAN OF TREATMENT: Continuation of the diuretic therapy, monitor kidney function closely. Bronchodilators administration. She was continued on Lasix for the next couple of days with monitoring of the patient intake and output. The chest x-ray will be monitored. Continue antibiotic based on the current sensitivity results as Levaquin for the streptococcal pneumonia. [place], [place] PROGRESS NOTE NAME: DOUG BRARONEAL Daigle UNIT #: [id number] ROOM: 524 DOCTOR: BRETT ABRAMS MD BIRTHDATE: [birth year] BRETT DALTON MD CM:SOFY [phone] BRETT CRUZ MD 04/14/17 0401 interface
--- NOTE | ~2017-04-09 | PR ---
[place], [place] PROGRESS NOTE NAME: MUMTAZ BRAR [facility] #: [id number] UNIT #: [id number] ROOM: 524 DOCTOR: KRYSTLE CRUZ MD,BRETT BIRTHDATE: [birth year] DOS: 04/11/2017 PULMONARY PROGRESS NOTE SUBJECTIVE: She has been noted without any acute distress. Still noted with a cough for this patient intermittently. There were no symptoms of chest pain. The patient stated that shortness of breath was still noted with partial improvement from yesterday. The family member of the patient decided to be treated in this hospital, so she was not transferred to another facility. OBJECTIVE: VITAL SIGNS: For the patient which were recorded this morning shows a normal temperature, respiratory rate 20, heart rate of 60-114. The blood pressure 151/81-147/75. The pulse oxygen saturation of the patient recorded as 95% on 2 liter nasal cannula this morning. HEENT: Examination shows no acute change. NECK: Supple. CARDIOVASCULAR: S1, S2 audible. LUNGS: Still noted decreased breath sounds. Lower portion of the lungs, scattered crackles of the lungs. ABDOMEN: Soft, nontender. EXTREMITIES: Without any edema. GENITOURINARY: Nonfocal. LABORATORY DATA: BMP today, sodium 130, ____ were noted as BUN 32, creatinine normal, glucose 131. Albumin of 2.1. CBC of this morning: WBC count 13.3, hemoglobin 7.3, hematocrit 22.0, platelet count 417,000 for the patient as well. The physical examination further extended for the patient. SKIN: No lesions or rashes. MUSCULOSKELETAL SYMPTOMS: Without any acute deformities. CENTRAL NERVOUS SYSTEM: Intact. The patient's PT/INR yesterday noted normal. Sputum culture preliminary showed normal flex. Gram stain many gram-positive cocci in pairs and chains with many wbc's. IMPRESSION: Persistent pleural fluid. The patient on physical examination with acute pneumonia with compression atelectasis and other respiratory symptom with only partial improvement, mild improvement noted. Hyponatremia for this patient as well. PLAN OF MANAGEMENT: A chest x-ray of the patient was ordered to be done in the morning. Continue antibiotic. Adjustment of the fluid for the patient. Diuretics and other left to the Nephrology services. Continue current antibiotic for the patient as well for any suspected acute pneumonia. Continuation of the anticoagulation. The patient was noted with atrial fibrillation, rapid ventricular response with the medication adjusted for this patient by the primary care attending for the tachycardia, which had been noted [place], [place] PROGRESS NOTE NAME: MUMTAZ BRAR UNIT #: [id number] ROOM: 4 DOCTOR: KRYSTLE CRUZ MD,BRETT BIRTHDATE: [birth year] intermittently. Other supportive plan of management and care. BRETT DALTON MD CM:PNMARGE [id number] BRETT CRUZ MD 04/11/171811 interface
--- NOTE | ~2017-04-09 | PR ---
[place], [place] PROGRESS NOTE [id number] UN[facility] #: [id number] ROOM: 524 DOCTOR: ELIZABETH ANDUJAR DO BIRTHDATE: [birth year] DOS: 04/18/2017 SUBJECTIVE: The patient was seen and examined at bedside. The patient was sitting upright in no acute distress. The patient reports that she felt mildly fatigued and under the whether for an hour this morning but when she got her meds, she felt much better. She thought it was related to her glucose, however, glucose readings this morning showed glucose of 240. The patient agreed that she feels well enough to go home. No new complaints at this time this morning. LABORATORY DATA: White count 11.2, hemoglobin 9.6, hematocrit 28.5, platelets is 429. BMP: Sodium 134, potassium 4.6, chloride 95, bicarb 30, BUN 57 and creatinine 1.09. Glucose 185. Cultures from the April 09 show strep pneumonia in the sputum. Occult blood screening was positive on the . Stool cultures for C. diff were negative. Blood cultures remain negative during her stay. Influenza was negative. Chest x-ray yesterday showed mild effusions. No change from prior studies. OBJECTIVE: VITAL SIGNS: Temperature 97.3, pulse is 64, respirations 22, blood pressure 128/64, pulse ox is 93% on 2 liters nasal cannula. GENERAL APPEARANCE: The patient is alert and oriented times 3, no acute distress. HEENT: Eyes are clear, no injection. Mucous membranes moist. NECK: Supple, nontender. CARDIOVASCULAR: Regular rate and rhythm. No murmurs, gallops or rubs. PULMONARY: Lungs are clear to auscultation. No wheezes, rales or rhonchi. ABDOMEN: Soft, nontender with positive bowel sounds. EXTREMITIES: No erythema, no cyanosis, no clubbing. NEUROLOGIC: Negative for focal deficits. IMPRESSION: 1. Resolving pleural fluid. The patient continues to remain stable. 2. History of atrial fibrillation. 3. Mild thrombocytopenia with hyperkalemia. TREATMENT PLAN: At this time, patient is medically stable for discharge based on the serial chest x-rays that showed no worsening of the pleural effusions. The patient to continue her therapy outpatient. The patient is cleared for discharge from a pulmonary standpoint, ELIZABETH ANDUJAR DO [place], [place] PROGRESS NOTE NAME: MUMTAZ BRAR UNIT #: [id number] ROOM: [facility] DOCTOR: ELIZABETH ANDUJAR DO BIRTHDATE: [birth year] BRETT DALTON MD CM:PNMARGE 1258 ELIZABETH ANDUJAR DO 04/18/17 1337 interface
--- NOTE | ~2017-04-09 | CON ---
[place], [place] REPORT OF CONSULTATION [id number] UNIT #: [id number] ROOM: 524 DOCTOR: WANDA CARDOZA MD BIRTHDATE: [birth year] DOS: 04/15/2017 HISTORY OF PRESENT ILLNESS: This is a very pleasant 86-year-old -[place] woman with a history of chronic atrial fibrillation who was discharged from the hospital after several days of stay in this hospital. During that hospitalization, she had AFib with rapid ventricular rate, which was controlled with beta yoni, diltiazem and IV digoxin. She had never been anticoagulated. Dr. Saavedra also saw this patient and did a stress test because of abnormal troponin level and perfusion images were normal, i.e., no ischemia or infarction. An echocardiogram demonstrated normal LV systolic function. She was discharged home and readmitted on the 2nd of this month 2 days after having stayed at home with influenza A determined by her primary care physician. She had quite a bit of cough and shortness of breath, nausea and also some diarrhea for a couple of days. She has shortness of breath now, but no palpitations, does not have any chest pain. Dr. Saavedra was asked to see this patient because of rapid ventricular rate in response to atrial fibrillation. She does not smoke nor does she drink alcoholic beverages. [facility] MEDICATIONS: IV diltiazem, p.o. metoprolol tartrate 50 mg b.i.d. She is on gabapentin, Plaquenil, levofloxacin, losartan, omeprazole, and Xarelto 20 mg, simvastatin 10, temazepam 15. PHYSICAL EXAMINATION: GENERAL: This is a patient who is a very pleasant, alert. She is comfortable. She is not particularly tachypneic. Complexion is little pale. VITAL SIGNS: Pulse is irregular at about 120 beats per minute, blood pressure 150/60. NECK: JVP is normal. EXTREMITIES; Trace pedal edema bilaterally. RESPIRATORY: Breath sounds are diminished with few adventitious sounds in both lungs. Monitor now shows atrial fibrillation with rapid ventricular rate at 126 beats per minute. IMPRESSION: Atrial fibrillation with rapid ventricular rate. This may have been triggered by infection. Metoprolol 50 mg b.i.d. may have to be increased to 75 mg b.i.d. I would start diltiazem 90 mg t.i.d. This is an irregular preparation and then taper off or discontinue diltiazem. If beta yoni and calcium channel blockers do not control the heart rate adequately, then a small dose of digoxin should be added. I thank you on behalf of Dr. Saavedra for this consult. [place], [place] REPORT OF CONSULTATION NAME: MUMTAZ BRAR UNIT #: [id number] ROOM: 524 DOCTOR: WANDA CARDOZA MD BIRTHDATE: [birth year] WANDA CARDOZA MD CM:CONSTR:REPORT OF CONSULTATION 1253 04/16/17 0101 interface
--- NOTE | ~2017-04-09 | PR ---
[place], [place] PROGRESS NOTE [id number] #: [id number] ROOM: 524 DOCTOR: KRYSTLE CRUZ MD,BRETT BIRTHDATE: [birth year] DOS: 04/18/2017 SUBJECTIVE: The patient was independently seen and examined today in [id number] encounter, history was confirmed. Physical examination performed personally. All the labs were reviewed. The note done by the medical reception specialist for the patient was approved. The patient has been noted with progressive improvement and resolution of the acute respiratory symptoms at this time, resolving pleural fluid, resolved acute pneumonia from the streptococcal pneumonia. Resolution in the past Influenza A infection was also noted. She is currently awaiting transfer to the nursing facility. The renal function panel today was noted with a creatinine of 1.09, BUN 57 with improvement in creatinine noted ____ stable at 134. The chest x-ray two-view that was done yesterday ____ resolution of the pleural fluid. The patient currently waiting for transfer to the nursing facility. Agreed with the plan. The patient could be discharged on Lasix only 20 mg daily with fluid restriction to improve the pleural fluids. No further antibiotic will be needed. Additional medical management for this patient and final discharge medication to be done by primary care attending upon discharge. BRETT DALTON MD CM:PNTRANS 1501 [id number] BRETT CRUZ MD 04/18/17 1637 interface
--- NOTE | ~2017-04-09 | O ---
[place], [place] OPERATIVE NOTE NAME: MUMTAZ BRAR UNIT #: [id number] ROOM: 524 DOCTOR: JACQUELINE HOLLIS MD BIRTHDATE: [birth year] DOS: 04/12/2017 The patient has presented with drop in H and H, status post transfusion and stabilization. The patient has had a colonoscopy last year. PROCEDURE: Today's procedure part of investigation is panendoscopy. PREMEDICATION: Versed and Diprivan. SCOPE: Olympus forward-viewing gastroscope Q10 video. REPORT: After putting the patient in left lateral position and application of lubricant to the scope, the scope was introduced. Thereafter, under direct visualization, advanced through the length of esophagus without difficulty. Small hiatal hernia 2 cm noticed. Gastric pouch was entered. Mild gastritis seen. Duodenal bulb, second and third part no evidence of bleeding. The patient was gradually extubated and tolerated the procedure well. IMPRESSION: Mild gastritis and small hiatal hernia. PLAN AND DISCUSSION: The patient has been on Xarelto and aspirin. This could have been the culprit in bleeding. I have done a rectal examination on her. Also, she does not have blood on stool. Stool is yellow and she has had a colonoscopy last year. Therefore, we are going to proceed with omeprazole 20 mg daily. We are going to proceed with a regular diet and following up on H and H. Aspirin and Xarelto can be restarted because of her atrial fibrillation and we will reassess H and H in a.m. JACQUELINE HOLLIS MD CM:OPRECORD:OPERATIVE NOTE [phone] JACQUELINE HOLLIS MD 04/12/171899 interface
[~2017-04-09 14:03] MED LIST changes: +METOPROLOL25 MG PO; +MUCINEX1200 M1 PO; +TAMIFLU 75MG CA75 MG PO; +VENTOLIN 02.5 MG/3 M INH; +XARE20MG PO
[2017-04-09] MEDS ORDERED: ALBUTEROL2.5 MG/0.5 NEB (15:02)
[2017-04-09 15:40] LABS: HEMATOCRIT 27.2 % (37.0-47.0); HEMOGLOBIN 9.3 g/dl (12.0-16.0); MEAN CELL VOLUME 90.7 fl (81.0-99.0); MEAN CORPUSCULAR HGB CONC 34.2 g/dl (33.0-37.0); MEAN PLATELET VOLUME 10.8 fl (9.6-12.3); PLATELET COUNT AUTOMATED 395 10*3/uL (130-400); RED CELL DISTRI WIDTH 12.4 % (0-14.5); WHITE BLOOD COUNT 18.7 10*3/uL (4.8-10.8)
[2017-04-09 15:49] LABS: INTERNATIONAL NORM RATIO 1.4 (2.0-3.5)
[2017-04-09 15:56] LABS: ALBUMIN 2.8 gm/dl (3.1-4.5); CREATININE 1.08 mg/dL (0.55-1.02); POTASSIUM 4.3 mmol/L (3.5-5.1); TOTAL PROTEIN 7.4 gm/dL (6.4-8.2); TROPONIN I 0.026 ng/ml (<0.045)
[2017-04-09 16:02] LABS: TOTAL CELLS COUNTED 100 #CELLS
[2017-04-09 16:03] LABS: PLATELET SUFFICIENCY NORMAL (NORMAL); POLYCHROMASIA SLIGHT
[2017-04-09 17:03] LABS: BILIRUBIN NEGATIVE (NEGATIVE); BLOOD TRACE-LYSED (NEGATIVE); CLARITY SL CLOUDY (CLEAR); COLOR YELLOW (YELLOW); GLUCOSE NEGATIVE (NEGATIVE); KETONE NEGATIVE (NEGATIVE); LEUKO ESTERASE NEGATIVE (NEGATIVE); NITRITE NEGATIVE (NEGATIVE); PH 5.5 (5.0-9.0); SPECIFIC GRAVITY 1.015 (1.005-1.030); UROBILINOGEN 0.2 E.U./dl (0.2-1.0)
[2017-04-09 17:09] LABS: BACTERIA TRACE
[2017-04-09 17:10] LABS: MUCOUS 1+
[2017-04-09] MEDS ORDERED: LOPRESSOR25 MG PO (17:32)
[2017-04-09] MEDS ORDERED: NIFEDIPINE ER30 M1 PO (17:33)
[2017-04-09] MEDS ORDERED: NATURE'S BLEND F1 MG PO (17:34)
[2017-04-09] MEDS ORDERED: METHOTREXATE2.5 M1 PO (17:34)
[2017-04-09] MEDS ORDERED: PROMETHAZINE25 M1 PO (18:24)
[2017-04-09] MEDS ORDERED: ANORO ELLIPTA1 EACH INH (18:26)
[2017-04-10] VITALS: BP 151/61
[2017-04-10 03:00] LABS: HEMATOCRIT 22.6 % (37.0-47.0); HEMOGLOBIN 7.7 g/dl (12.0-16.0); MEAN CORPUSCULAR HGB 30.7 pg (27.0-31.0); MEAN CORPUSCULAR HGB CONC 34.1 g/dl (33.0-37.0); MEAN PLATELET VOLUME 10.3 fl (9.6-12.3); PLATELET COUNT AUTOMATED 347 10*3/uL (130-400); RED BLOOD COUNT 2.51 10*6/uL (4.10-5.10); RED CELL DISTRI WIDTH 12.5 % (0-14.5); WHITE BLOOD COUNT 14.7 10*3/uL (4.8-10.8)
[2017-04-10 03:09] LABS: INTERNATIONAL NORM RATIO 1.2 (2.0-3.5)
[2017-04-10 03:12] LABS: CHLORIDE 95 mmol/L (98-107); CREATININE 0.86 mg/dL (0.55-1.02); PHOSPHOROUS 3.2 mg/dL (2.5-4.9); POTASSIUM 4.3 mmol/L (3.5-5.1); SODIUM 130 mmol/L (136-145)
[2017-04-10 03:16] LABS: BUN 51 mg/dl (7-24)
[2017-04-10 03:22] LABS: PLATELET SUFFICIENCY NORMAL (NORMAL); TOTAL CELLS COUNTED 100 #CELLS
[2017-04-10 03:23] LABS: POLYCHROMASIA SLIGHT
[2017-04-10 03:46] LABS: VITAMIN D, 25-HYDROXY 23.1 ng/mL (30-100)
[2017-04-10 04:00] VITALS: BP 150/82
[2017-04-10 08:00] VITALS: BP 149/65
[2017-04-10 12:00] VITALS: BP 142/63
[2017-04-10 16:00] VITALS: BP 148/59
[2017-04-10 20:00] VITALS: BP 121/62
[2017-04-11] VITALS: BP 151/81
[2017-04-11 06:36] LABS: HEMOGLOBIN 7.3 g/dl (12.0-16.0); MEAN CELL VOLUME 92.4 fl (81.0-99.0); MEAN CORPUSCULAR HGB 30.7 pg (27.0-31.0); MEAN CORPUSCULAR HGB CONC 33.2 g/dl (33.0-37.0); MEAN PLATELET VOLUME 9.7 fl (9.6-12.3); PLATELET COUNT AUTOMATED 417 10*3/uL (130-400); RED BLOOD COUNT 2.38 10*6/uL (4.10-5.10); RED CELL DISTRI WIDTH 12.8 % (0-14.5); WHITE BLOOD COUNT 13.3 10*3/uL (4.8-10.8)
[2017-04-11 07:07] LABS: ALBUMIN 2.1 gm/dl (3.1-4.5); CHLORIDE 100 mmol/L (98-107); CREATININE 0.92 mg/dL (0.55-1.02); PHOSPHOROUS 3.3 mg/dL (2.5-4.9); POTASSIUM 4.2 mmol/L (3.5-5.1); SODIUM 130 mmol/L (136-145)
[2017-04-11 07:11] LABS: ATYPICAL LYMPHS 1 % (0-0); PLATELET SUFFICIENCY HIGH (NORMAL); POLYCHROMASIA SLIGHT; TOTAL CELLS COUNTED 100 #CELLS
[2017-04-11 07:12] LABS: BUN 32 mg/dl (7-24)
[2017-04-11 08:00] VITALS: BP 147/75
[2017-04-11 13:09] LABS: IRON 25 ug/dL (50-170); TOTAL IRON BINDING CAPACITY 150 ug/dl (250-450)
[2017-04-11 14:25] VITALS: BP 127/61
[2017-04-11 15:18] VITALS: BP 142/57
[2017-04-11 18:50] LABS: HEMATOCRIT 29.7 % (37.0-47.0); HEMOGLOBIN 10.3 g/dl (12.0-16.0)
[2017-04-11 20:00] VITALS: BP 133/88
[2017-04-12] VITALS (9 sets, daily range): BP systolic 117–146; BP diastolic 47–96
[2017-04-12 06:49] LABS: HEMATOCRIT 26.2 % (37.0-47.0); HEMOGLOBIN 8.9 g/dl (12.0-16.0); MEAN CELL VOLUME 90.7 fl (81.0-99.0); MEAN CORPUSCULAR HGB 30.8 pg (27.0-31.0); MEAN PLATELET VOLUME 9.6 fl (9.6-12.3); PLATELET COUNT AUTOMATED 398 10*3/uL (130-400); RED BLOOD COUNT 2.89 10*6/uL (4.10-5.10); RED CELL DISTRI WIDTH 13.5 % (0-14.5)
[2017-04-12 06:56] LABS: ALBUMIN 2.1 gm/dl (3.1-4.5); CREATININE 1.08 mg/dL (0.55-1.02); PHOSPHOROUS 3.5 mg/dL (2.5-4.9); POTASSIUM 4.6 mmol/L (3.5-5.1)
[2017-04-12 08:01] LABS: BURR CELLS MODERATE; PLATELET SUFFICIENCY NORMAL (NORMAL); SCHISTOCYTES FEW; TOTAL CELLS COUNTED 100 #CELLS
[2017-04-13] VITALS (11 sets, daily range): BP systolic 118–155; BP diastolic 43–90
[2017-04-13 07:58] LABS: HEMATOCRIT 28.7 % (37.0-47.0); HEMOGLOBIN 9.7 g/dl (12.0-16.0); MEAN CELL VOLUME 91.4 fl (81.0-99.0); MEAN CORPUSCULAR HGB 30.9 pg (27.0-31.0); MEAN CORPUSCULAR HGB CONC 33.8 g/dl (33.0-37.0); MEAN PLATELET VOLUME 9.7 fl (9.6-12.3); PLATELET COUNT AUTOMATED 484 10*3/uL (130-400); RED BLOOD COUNT 3.14 10*6/uL (4.10-5.10); RED CELL DISTRI WIDTH 13.6 % (0-14.5); WHITE BLOOD COUNT 13.2 10*3/uL (4.8-10.8)
[2017-04-13 08:25] LABS: ALBUMIN 2.4 gm/dl (3.1-4.5); CREATININE 1.14 mg/dL (0.55-1.02); PHOSPHOROUS 4.3 mg/dL (2.5-4.9); POTASSIUM 4.6 mmol/L (3.5-5.1); TOTAL PROTEIN 6.5 gm/dL (6.4-8.2)
[2017-04-13 08:27] LABS: TOTAL CELLS COUNTED 100 #CELLS
[2017-04-13 08:28] LABS: PLATELET SUFFICIENCY HIGH (NORMAL)
[2017-04-13 08:29] LABS: BURR CELLS MODERATE
[2017-04-14] VITALS (9 sets, daily range): BP systolic 110–155; BP diastolic 56–102
[2017-04-14 07:16] LABS: HEMATOCRIT 25.6 % (37.0-47.0); HEMOGLOBIN 8.7 g/dl (12.0-16.0); MEAN CELL VOLUME 92.8 fl (81.0-99.0); MEAN CORPUSCULAR HGB 31.5 pg (27.0-31.0); MEAN PLATELET VOLUME 9.9 fl (9.6-12.3); PLATELET COUNT AUTOMATED 465 10*3/uL (130-400); RED BLOOD COUNT 2.76 10*6/uL (4.10-5.10); RED CELL DISTRI WIDTH 13.6 % (0-14.5); WHITE BLOOD COUNT 17.4 10*3/uL (4.8-10.8)
[2017-04-14 07:51] LABS: ALBUMIN 2.2 gm/dl (3.1-4.5); CREATININE 1.28 mg/dL (0.55-1.02); TOTAL PROTEIN 5.8 gm/dL (6.4-8.2)
[2017-04-14 08:13] LABS: ATYPICAL LYMPHS 1 % (0-0); PLATELET SUFFICIENCY HIGH (NORMAL); TOTAL CELLS COUNTED 100 #CELLS
[2017-04-14 08:14] LABS: BURR CELLS FEW; OVALOCYTES FEW
[2017-04-15] VITALS: BP 115/91
[2017-04-15 07:37] LABS: HEMATOCRIT 30.6 % (37.0-47.0); HEMOGLOBIN 10.3 g/dl (12.0-16.0); MEAN CORPUSCULAR HGB 30.3 pg (27.0-31.0); MEAN CORPUSCULAR HGB CONC 33.7 g/dl (33.0-37.0); MEAN PLATELET VOLUME 9.7 fl (9.6-12.3); PLATELET COUNT AUTOMATED 505 10*3/uL (130-400); RED CELL DISTRI WIDTH 13.4 % (0-14.5)
[2017-04-15 07:52] LABS: ALBUMIN 2.4 gm/dl (3.1-4.5); CREATININE 1.11 mg/dL (0.55-1.02); PHOSPHOROUS 3.9 mg/dL (2.5-4.9); POTASSIUM 4.8 mmol/L (3.5-5.1)
[2017-04-15 08:00] VITALS: BP 143/76
[2017-04-15 08:28] LABS: BURR CELLS FEW; PLATELET SUFFICIENCY HIGH (NORMAL); POLYCHROMASIA SLIGHT; TOTAL CELLS COUNTED 100 #CELLS
[2017-04-15 12:19] VITALS: BP 150/60
[2017-04-15 16:22] VITALS: BP 138/59
[2017-04-15 20:27] VITALS: BP 132/62
[2017-04-16] VITALS: BP 126/45
[2017-04-16 06:36] LABS: HEMATOCRIT 26.4 % (37.0-47.0); HEMOGLOBIN 8.9 g/dl (12.0-16.0); MEAN CELL VOLUME 90.4 fl (81.0-99.0); MEAN CORPUSCULAR HGB 30.5 pg (27.0-31.0); MEAN CORPUSCULAR HGB CONC 33.7 g/dl (33.0-37.0); MEAN PLATELET VOLUME 9.5 fl (9.6-12.3); PLATELET COUNT AUTOMATED 455 10*3/uL (130-400); RED BLOOD COUNT 2.92 10*6/uL (4.10-5.10); RED CELL DISTRI WIDTH 13.2 % (0-14.5); WHITE BLOOD COUNT 15.3 10*3/uL (4.8-10.8)
[2017-04-16 07:02] LABS: ALBUMIN 2.2 gm/dl (3.1-4.5); CREATININE 1.24 mg/dL (0.55-1.02); PHOSPHOROUS 4.1 mg/dL (2.5-4.9); POTASSIUM 5.5 mmol/L (3.5-5.1)
[2017-04-16 07:06] LABS: PLATELET SUFFICIENCY HIGH (NORMAL); POLYCHROMASIA SLIGHT; TOTAL CELLS COUNTED 100 #CELLS
[2017-04-16 08:00] VITALS: BP 150/50
[2017-04-16 12:00] VITALS: BP 126/85
[2017-04-16 20:00] VITALS: BP 130/58
[2017-04-17] VITALS: BP 121/61
[2017-04-17 04:00] VITALS: BP 121/53
[2017-04-17 06:53] LABS: ALBUMIN 2.1 gm/dl (3.1-4.5); CREATININE 1.27 mg/dL (0.55-1.02); PHOSPHOROUS 3.9 mg/dL (2.5-4.9); POTASSIUM 5.2 mmol/L (3.5-5.1)
[2017-04-17 06:55] LABS: HEMATOCRIT 26.7 % (37.0-47.0); HEMOGLOBIN 8.9 g/dl (12.0-16.0); MEAN CELL VOLUME 92.7 fl (81.0-99.0); MEAN CORPUSCULAR HGB 30.9 pg (27.0-31.0); MEAN CORPUSCULAR HGB CONC 33.3 g/dl (33.0-37.0); MEAN PLATELET VOLUME 9.5 fl (9.6-12.3); PLATELET COUNT AUTOMATED 419 10*3/uL (130-400); RED BLOOD COUNT 2.88 10*6/uL (4.10-5.10); RED CELL DISTRI WIDTH 13.2 % (0-14.5); WHITE BLOOD COUNT 12.3 10*3/uL (4.8-10.8)
[2017-04-17 07:38] LABS: PLATELET SUFFICIENCY HIGH (NORMAL); TOTAL CELLS COUNTED 100 #CELLS
[2017-04-17 08:00] VITALS: BP 128/60
[2017-04-17 12:00] VITALS: BP 120/68
[2017-04-17 16:00] VITALS: BP 148/69
[2017-04-17 20:00] VITALS: BP 140/74
[2017-04-18] VITALS: BP 131/70
[2017-04-18 07:30] LABS: HEMATOCRIT 28.5 % (37.0-47.0); HEMOGLOBIN 9.6 g/dl (12.0-16.0); MEAN CELL VOLUME 92.8 fl (81.0-99.0); MEAN CORPUSCULAR HGB 31.3 pg (27.0-31.0); MEAN CORPUSCULAR HGB CONC 33.7 g/dl (33.0-37.0); MEAN PLATELET VOLUME 9.9 fl (9.6-12.3); PLATELET COUNT AUTOMATED 429 10*3/uL (130-400); RED BLOOD COUNT 3.07 10*6/uL (4.10-5.10); RED CELL DISTRI WIDTH 13.3 % (0-14.5); WHITE BLOOD COUNT 11.2 10*3/uL (4.8-10.8)
[2017-04-18 07:39] LABS: ALBUMIN 2.2 gm/dl (3.1-4.5); CREATININE 1.09 mg/dL (0.55-1.02); PHOSPHOROUS 3.6 mg/dL (2.5-4.9); POTASSIUM 4.6 mmol/L (3.5-5.1)
[2017-04-18 08:00] VITALS: BP 130/68
[2017-04-18 08:22] LABS: BASOPHILS 1 % (0-1); PLATELET SUFFICIENCY HIGH (NORMAL); TOTAL CELLS COUNTED 100 #CELLS
[2017-04-18 12:00] VITALS: BP 128/64
[2017-04-18] MEDS ORDERED: FUROSEMIDE40 MG PO (14:38)
[2017-04-18] MEDS ORDERED: Vitamin D PO (14:38)
[2017-04-18] MEDS ORDERED: METOPROLOL TART50 M1 PO (14:38)
[2017-04-18] MEDS ORDERED: METOPROLOL TAR100 M1 PO (14:38)
[2017-04-18] MEDS ORDERED: NEURONTIN300 MG PO (14:38)
[2017-04-18] MEDS ORDERED: LOSARTAN POTAS100 M1 PO (14:38)
[2017-04-18] MEDS ORDERED: LACTINEX 0.2 MG1 TAB PO (14:38)
[2017-04-18 16:00] VITALS: BP 119/68
== END 2017-04-18 16:55 | disposition other institution (70) | DRG 871 ==
LOC: ED 14:03 → 5E 16:38 → EDHOLD 16:38 → 5E 16:57
PROVIDERS: Internal Medicine; Internal Medicine Critical Care Medicine; Internal Medicine Hospice and Palliative Medicine; Internal Medicine Nephrology; Physician Assistant
PROC: 30233N1 Transfusion of Nonautologous Red Blood Cells into Peripheral Vein, Percutaneous Approach (ICD-10-PCS; principal; 2017-04-11)
PROC: 0DJ08ZZ Inspection of Upper Intestinal Tract, Via Natural or Artificial Opening Endoscopic (ICD-10-PCS; 2017-04-12)
DX: A41.9 Sepsis, unspecified organism (principal); N17.0 Acute kidney failure with tubular necrosis; J96.00 Acute respiratory failure, unspecified whether with hypoxia or hypercapnia; I21.4 Non-ST elevation (NSTEMI) myocardial infarction; E44.0 Moderate protein-calorie malnutrition; K29.71 Gastritis, unspecified, with bleeding; J15.4 Pneumonia due to other streptococci; D68.59 Other primary thrombophilia; D69.6 Thrombocytopenia, unspecified; E87.1 Hypo-osmolality and hyponatremia; I48.1 Persistent atrial fibrillation; E11.65 Type 2 diabetes mellitus with hyperglycemia; E87.5 Hyperkalemia; I11.0 Hypertensive heart disease with heart failure; E87.8 Other disorders of electrolyte and fluid balance, not elsewhere classified; E83.42 Hypomagnesemia; I50.9 Heart failure, unspecified; M05.9 Rheumatoid arthritis with rheumatoid factor, unspecified; R65.20 Severe sepsis without septic shock; J10.1 Influenza due to other identified influenza virus with other respiratory manifestations; K21.9 Gastro-esophageal reflux disease without esophagitis; D63.8 Anemia in other chronic diseases classified elsewhere; Z66 Do not resuscitate; Z51.5 Encounter for palliative care; K44.9 Diaphragmatic hernia without obstruction or gangrene; R31.29 Other microscopic hematuria; I25.10 Atherosclerotic heart disease of native coronary artery without angina pectoris; I49.5 Sick sinus syndrome; Z79.899 Other long term (current) drug therapy; Z90.710 Acquired absence of both cervix and uterus; Z87.01 Personal history of pneumonia (recurrent); Z82.49 Family history of ischemic heart disease and other diseases of the circulatory system; Z84.89 Family history of other specified conditions; I25.2 Old myocardial infarction; Z68.22 Body mass index [BMI] 22.0-22.9, adult

== ENCOUNTER 2017-04-23 03:50 | Inpatient (IN) | payer MEDICARE ==
[2017-04-23] VITALS (10 sets, daily range): BP systolic 136–166; BP diastolic 54–92
[~2017-04-23] VITALS: Ht 152.4 cm; Wt 49.2 kg
[~2017-04-23 03:50] MED LIST changes: +ALBUTEROL2.5 MG/0.5 NEB; +ANORO ELLIPTA1 EACH INH; +FUROSEMIDE40 MG PO; +LACTINEX 0.2 MG1 TAB PO; +LOPRESSOR25 MG PO; +LOSARTAN POTAS100 M1 PO; +METHOTREXATE2.5 M1 PO; +METOPROLOL TAR100 M1 PO; +METOPROLOL TART50 M1 PO; +NATURE'S BLEND F1 MG PO; +PROMETHAZINE25 M1 PO; +Vitamin D PO
[2017-04-23 04:07] LABS: BASO % 0.1 % (0.0-1.0); EOS # 0.1 10*3/uL (0.0-0.4); EOS % 0.4 % (1.0-4.0); HEMATOCRIT 28.9 % (37.0-47.0); HEMOGLOBIN 9.6 g/dl (12.0-16.0); LYMPH # 1.9 10*3/uL (1.3-4.4); LYMPH % 15.8 % (27.0-41.0); MEAN CELL VOLUME 91.5 fl (81.0-99.0); MEAN CORPUSCULAR HGB 30.4 pg (27.0-31.0); MEAN CORPUSCULAR HGB CONC 33.2 g/dl (33.0-37.0); MEAN PLATELET VOLUME 10.5 fl (9.6-12.3); MONO # 1.2 10*3/uL (0.1-1.0); MONO % 9.7 % (3.0-9.0); NEUT # 8.9 10*3/uL (2.3-7.9); NEUT % 73.3 % (47.0-73.0); PLATELET COUNT AUTOMATED 237 10*3/uL (130-400); RED BLOOD COUNT 3.16 10*6/uL (4.10-5.10); RED CELL DISTRI WIDTH 12.9 % (0-14.5); WHITE BLOOD COUNT 12.2 10*3/uL (4.8-10.8)
[2017-04-23 04:17] LABS: INTERNATIONAL NORM RATIO 1.1 (2.0-3.5)
[2017-04-23 04:25] LABS: ALBUMIN 2.7 gm/dl (3.1-4.5); ALKALINE PHOSPHATASE 32 U/L (45-117); BUN 42 mg/dl (7-24); CHLORIDE 95 mmol/L (98-107); CREATININE 0.94 mg/dL (0.55-1.02); SGOT/AST 13 IU/L (3-35); SGPT/ALT 16 U/L (12-78); SODIUM 134 mmol/L (136-145); TOTAL PROTEIN 6.5 gm/dL (6.4-8.2)
[2017-04-23 04:26] LABS: TROPONIN I < 0.015 ng/ml (<0.045)
[2017-04-23] MEDS ORDERED: FLORASTOR250 MG PO (04:44)
[2017-04-23] MEDS ORDERED: NEURONTIN300 MG PO (06:19)
[2017-04-23] MEDS ORDERED: FUROSEMIDE40 MG PO (06:20)
[2017-04-23] MEDS ORDERED: OMEPRAZOLE20 M2 PO (06:22)
[2017-04-23] MEDS ORDERED: PROMETHAZINE25 MG R (06:24)
[2017-04-23 17:23] LABS: BILIRUBIN NEGATIVE (NEGATIVE); BLOOD NEGATIVE (NEGATIVE); CLARITY CLEAR (CLEAR); COLOR YELLOW (YELLOW); GLUCOSE NEGATIVE (NEGATIVE); KETONE NEGATIVE (NEGATIVE); LEUKO ESTERASE NEGATIVE (NEGATIVE); NITRITE NEGATIVE (NEGATIVE); UROBILINOGEN 0.2 E.U./dl (0.2-1.0)
[2017-04-23 17:37] LABS: BACTERIA TRACE
[2017-04-23 22:19] LABS: BILIRUBIN NEGATIVE (NEGATIVE); BLOOD NEGATIVE (NEGATIVE); CLARITY CLEAR (CLEAR); COLOR YELLOW (YELLOW); GLUCOSE NEGATIVE (NEGATIVE); KETONE NEGATIVE (NEGATIVE); LEUKO ESTERASE NEGATIVE (NEGATIVE); NITRITE NEGATIVE (NEGATIVE); UROBILINOGEN 0.2 E.U./dl (0.2-1.0)
[2017-04-24] VITALS: BP 153/89
[2017-04-24 07:05] LABS: BASO % 0.1 % (0.0-1.0); EOS # 0.1 10*3/uL (0.0-0.4); EOS % 0.8 % (1.0-4.0); HEMOGLOBIN 9.4 g/dl (12.0-16.0); LYMPH % 19.2 % (27.0-41.0); MEAN CELL VOLUME 93.9 fl (81.0-99.0); MEAN CORPUSCULAR HGB 30.4 pg (27.0-31.0); MEAN CORPUSCULAR HGB CONC 32.4 g/dl (33.0-37.0); MEAN PLATELET VOLUME 11.1 fl (9.6-12.3); MONO # 0.8 10*3/uL (0.1-1.0); MONO % 8.2 % (3.0-9.0); NEUT # 7.3 10*3/uL (2.3-7.9); NEUT % 70.9 % (47.0-73.0); PLATELET COUNT AUTOMATED 231 10*3/uL (130-400); RED BLOOD COUNT 3.09 10*6/uL (4.10-5.10); WHITE BLOOD COUNT 10.2 10*3/uL (4.8-10.8)
[2017-04-24 07:24] LABS: BUN 34 mg/dl (7-24); CHLORIDE 99 mmol/L (98-107); CREATININE 0.82 mg/dL (0.55-1.02); POTASSIUM 4.8 mmol/L (3.5-5.1); SODIUM 135 mmol/L (136-145)
[2017-04-24 08:00] VITALS: BP 150/76
[2017-04-24 12:00] VITALS: BP 160/64
[2017-04-24 16:00] VITALS: BP 156/84
[2017-04-24 20:00] VITALS: BP 152/57
[2017-04-25] VITALS: BP 151/65
[2017-04-25 06:48] LABS: BASO % 0.1 % (0.0-1.0); EOS # 0.1 10*3/uL (0.0-0.4); EOS % 0.6 % (1.0-4.0); HEMATOCRIT 26.7 % (37.0-47.0); HEMOGLOBIN 8.6 g/dl (12.0-16.0); MEAN CELL VOLUME 92.7 fl (81.0-99.0); MEAN CORPUSCULAR HGB 29.9 pg (27.0-31.0); MEAN CORPUSCULAR HGB CONC 32.2 g/dl (33.0-37.0); MEAN PLATELET VOLUME 10.7 fl (9.6-12.3); MONO # 0.6 10*3/uL (0.1-1.0); MONO % 7.9 % (3.0-9.0); NEUT # 5.4 10*3/uL (2.3-7.9); NEUT % 66.7 % (47.0-73.0); PLATELET COUNT AUTOMATED 215 10*3/uL (130-400); RED BLOOD COUNT 2.88 10*6/uL (4.10-5.10); RED CELL DISTRI WIDTH 12.8 % (0-14.5); WHITE BLOOD COUNT 8.1 10*3/uL (4.8-10.8)
[2017-04-25 07:19] LABS: BUN 35 mg/dl (7-24); CHLORIDE 101 mmol/L (98-107); POTASSIUM 4.3 mmol/L (3.5-5.1); SODIUM 134 mmol/L (136-145)
[2017-04-25 08:00] VITALS: BP 144/64
[2017-04-25 12:00] VITALS: BP 137/64
[2017-04-25] MEDS ORDERED: METOPROLOL TAR100 M1 PO (15:17)
[2017-04-25 16:00] VITALS: BP 148/54
== END 2017-04-25 17:43 | disposition home or self-care (01) | DRG 871 ==
LOC: ED 03:50 → 5E 05:02 → EDHOLD 05:02 → 5E 05:37
PROVIDERS: Emergency Medicine Emergency Medical Services; Internal Medicine Hospice and Palliative Medicine
DX: A41.9 Sepsis, unspecified organism (principal); E43 Unspecified severe protein-calorie malnutrition; I21.9 Acute myocardial infarction, unspecified; N17.9 Acute kidney failure, unspecified; J18.9 Pneumonia, unspecified organism; E11.22 Type 2 diabetes mellitus with diabetic chronic kidney disease; E11.40 Type 2 diabetes mellitus with diabetic neuropathy, unspecified; E11.65 Type 2 diabetes mellitus with hyperglycemia; I49.5 Sick sinus syndrome; I50.32 Chronic diastolic (congestive) heart failure; I13.0 Hypertensive heart and chronic kidney disease with heart failure and stage 1 through stage 4 chronic kidney disease, or unspecified chronic kidney disease; E87.1 Hypo-osmolality and hyponatremia; J44.0 Chronic obstructive pulmonary disease with (acute) lower respiratory infection; I48.2 Chronic atrial fibrillation; E87.8 Other disorders of electrolyte and fluid balance, not elsewhere classified; I48.91 Unspecified atrial fibrillation; K21.9 Gastro-esophageal reflux disease without esophagitis; E78.5 Hyperlipidemia, unspecified; I25.10 Atherosclerotic heart disease of native coronary artery without angina pectoris; M06.9 Rheumatoid arthritis, unspecified; D64.9 Anemia, unspecified; D72.821 Monocytosis (symptomatic); E55.9 Vitamin D deficiency, unspecified; Z66 Do not resuscitate; R79.89 Other specified abnormal findings of blood chemistry; N18.3 Chronic kidney disease, stage 3 (moderate); K44.9 Diaphragmatic hernia without obstruction or gangrene; K80.20 Calculus of gallbladder without cholecystitis without obstruction; Z68.22 Body mass index [BMI] 22.0-22.9, adult; Z90.710 Acquired absence of both cervix and uterus; Z82.49 Family history of ischemic heart disease and other diseases of the circulatory system; Z79.899 Other long term (current) drug therapy; I25.2 Old myocardial infarction; Z98.890 Other specified postprocedural states; Z79.84 Long term (current) use of oral hypoglycemic drugs

== ENCOUNTER 2017-06-06 06:03 | Inpatient (IN) | payer MEDICARE ==
[2017-06-06] VITALS (8 sets, daily range): BP systolic 105–132; BP diastolic 48–82
[~2017-06-06] VITALS: Ht 152.4 cm; Wt 51.3 kg
--- NOTE | ~2017-06-06 | PR ---
[place], [place] PROGRESS NOTE NAME: MUMTAZ BRAR [facility] #: [id number] UNIT #: [id number] ROOM: 401 DOCTOR: KRYSTLE CRUZ MD,BRETT BIRTHDATE: [birth year] DOS: 06/10/2017 SUBJECTIVE: The patient was noted comfortable at this time, was transferred to telemetry floor, has bradyarrhythmia, the patient was noted improved. The patient was actually noted with sinus tachycardia. The patient with atrial fibrillation intermittently as well. She has not been noted symptoms of chest pain. Denies symptoms of hemoptysis. She was not noted any symptoms of dizziness. General weakness, fatigue was also noted, partially improved. Remaining systems were reviewed. They were noted all negative. OBJECTIVE: VITAL SIGNS: For the patient shows the temperature remains normal, respiratory rate 19-20, heart rate ranging between 105-117, blood pressure 110/65-129/95. Intake 1150, output 3500 mL, ____ 2.3 liters. The pulse oxygen saturation on 2 liters nasal cannula was 99% saturation. HEENT: Examination shows head was atraumatic. Eyes nonicterus. NECK: Supple. CARDIOVASCULAR: S1, S2 audible. LUNGS: Noted decreased breath sounds in the lower portion of the lungs bilaterally. ABDOMEN: Soft, nontender. EXTREMITIES: The patient was noted without any acute edema. SKIN: No lesions or rashes. MUSCULOSKELETAL: Without any acute deformities. GENITOURINARY: Intact with general weakness, otherwise noted. LABORATORY DATA: The patient's CBC today: WBC count normal, hemoglobin 10, hematocrit 31, platelet count was normal. CMP this morning with a sodium of 134, potassium 4.6, BUN of 66, creatinine 1.33. Glucose 169. IMPRESSION: 1. The patient who has been currently noted with bilateral persistent pleural fluid with congestive heart failure, most likely cause for this patient with atrial fibrillation with intermittent rapid ventricular response. 2. Resolution of bradyarrhythmia, medication induced. PLAN OF MANAGEMENT: The patient is already assessed again today has been noted with persistent moderate bilateral pleural fluid, will be undergoing thoracentesis as I examined the patient with ultrasound of the chest done today at the bedside confirming the need of thoracentesis. Continuation, in the meantime other previous therapy, plan of management. The cardiac management of the patient's arrhythmia by Cardiology services. Usual care, all other supportive therapy, plan of management and care plan. Additional treatment changes to be made. The patient based on progression of the illness. [place], [place] PROGRESS NOTE NAME: UMMTAZ BRAR UNIT #: [id number] ROOM: [facility] DOCTOR: BRETT ABRAMS MD BIRTHDATE: [birth year] BRETT DALTON MD CM:PNTRANS 1539 1 BRETT CRUZ MD 06/11/170 interface
--- NOTE | ~2017-06-06 | PR ---
[place], [place] PROGRESS NOTE NAME: MUMTAZ BRAR [facility] #: [id number] UNIT #: [id number] ROOM: 401 DOCTOR: ARETHA JUDGE MD BIRTHDATE: [birth year] DOS: 06/10/2017 SUBJECTIVE: The patient was at her bedside today, 06/10/2017, with her daughter, Laxmi in attendance. The patient had a rough weekend. She felt breathless and dyspneic and was noted to have significant bradycardia. She was treated with dobutamine to increase her heart rate and her beta yoni and diltiazem were stopped. Today her heart rate is in the 120 range. Blood pressure is stable. She denies chest pain, but feels tired and somewhat breathless. Thoracentesis is planned. PHYSICAL EXAMINATION: GENERAL: Today she is a slender, elderly white female who is awake, alert and oriented. VITAL SIGNS: Pulse is 120 and irregular, blood pressure is 123/72. She is afebrile. She weighs 50.9 kg and has a body mass index of 21.9. HEENT: Normocephalic and atraumatic. Extraocular muscles are intact. Sclerae are clear. Pupils are equal, round and react to light. The oral mucosa is moist. Tongue is midline. NECK: Supple. She has no jugular distention. Carotids are full. I heard no bruits. She had no neck or supraclavicular masses and no thyromegaly. LUNGS: Respirations are unlabored. She has decreased breath sounds and dullness at the bases. She has no presacral edema. HEART: Has an irregularly irregular rhythm without murmurs or gallops. ABDOMEN: Benign. EXTREMITIES: Showed no edema. ASSESSMENT AND PLAN: She does seem to be tachycardic again with her atrial fibrillation. I am not clear if this represents tachybrady syndrome or simply just response to her recent change in medications. We will stop all pressors and increase her beta yoni. Hopefully, she will breathe better once she has had a thoracentesis. We will do what we can with medications to keep her from accumulating the pleural fluid. As I expressed to the patient and her daughter; however, management of chronic diastolic heart failure and atrial fibrillation is very difficult and often unsatisfactory. I thank the hospitalist physicians for asking our advice regarding her care. [place], [place] PROGRESS NOTE NAME: JOSUÉGAYLEMUMTAZ D UNIT #: [id number] ROOM: 401 DOCTOR: NU SHELDON,ARETHA BIRTHDATE: [birth year] ARETHA JUDGE MD CM:PNTRANS [phone] ARETHA JUDGE MD 06/10/17 1022 interface
--- NOTE | ~2017-06-06 | PR ---
[place], [place] PROGRESS NOTE NAME: MUMTAZ BRAR UNIT #: [id number] ROOM: 401 DOCTOR: BRETT ABRAMS MD BIRTHDATE: [birth year] DOS: 06/14/2017 SUBJECTIVE: She has been noted very comfortable at this time, resting in the bed at this time and improving dizziness noted. Denies symptoms of chest pain. The heart rate was also noted better controlled for the patient less than 100 with atrial fibrillation. OBJECTIVE: VITAL SIGNS: Normal temperature, respiratory rate 20, heart rate 99-71, blood pressure 115/57-122/50. The pulse oxygen saturation on 2 liters nasal cannula 98% saturation. HEENT: Examination shows no acute change. NECK: Supple. CARDIOVASCULAR: S1, S2 audible. LUNGS: Noted without any wheeze or crackles at the present time. Breath sounds are noted, minimally decreased in the lower portion of the lungs. ABDOMEN: Soft, nontender. LABORATORY DATA: Pleural fluid noted bilaterally for the patient, noted benign finding without any malignancy. The BMP today, BUN 62, creatinine 1.24. Sodium 132. IMAGING STUDIES: Chest x-ray that I ordered for the patient this morning was reviewed, shows small remaining pleural fluid with improvement noted as compared to previous chest x-ray prior to thoracentesis and after thoracentesis. IMPRESSION: 1. The patient with mild acute kidney injury, related to congestive heart failure, on diuretics, improvement of the pleural fluid noted. 2. The patient with atrial fibrillation, currently noted controlled range with resolution of the bradyarrhythmia. PLAN OF TREATMENT: No change from pulmonary standpoint. Continue monitoring of the respiratory status. No changes were advised. Assessment and management of the patient's acute kidney injury per Nephrology services assessment. [place], [place] PROGRESS NOTE NAME: MUMTAZ BRAR UNIT #: [id number] ROOM: 401 DOCTOR: BRETT ABRAMS MD BIRTHDATE: [birth year] BRETT DALTON MD CM:PNTRANS [id number] BRETT CRUZ MD 06/15/17 0111 interface
--- NOTE | ~2017-06-06 | PR ---
[place], [place] PROGRESS NOTE NAME: MUMTAZ BRAR [facility] #: [id number] UNIT #: [id number] ROOM: 401 DOCTOR: KRYSTLE CRUZ MD,BRETT BIRTHDATE: [birth year] DOS: 06/09/2017 SUBJECTIVE: The patient has been noted comfortable at this time, resting on the bed. The patient was transferred to Intensive Care Unit because of bradyarrhythmia and hypotension management. The patient has not been noted symptoms of hemoptysis or chest pain. Mild cough was noted without any sputum expectoration. The patient denies any pain or edema of the lower extremities. Denies symptoms of headache. Some dizziness was reported by the patient yesterday, residual, but it has been improving in general. The remaining systems were reviewed, noted normal. OBJECTIVE: VITAL SIGNS: The temperature for the patient noted normal, respiratory rate 19-20, heart rate of 117-100, noted improved from previous bradyarrhythmias with blood pressure between 93/49 to 111/48. Intake for the patient is 880, output 1450 mL. The pulse oxygen saturation of the patient was noted on 2 liters nasal cannula at 98% saturation. HEENT: Showed head was atraumatic, eyes nonicterus. NECK: Supple. CARDIOVASCULAR: S1, S2 audible. LUNGS: The patient was noted without any crackles, rhonchi or wheezing at this time except decreased breath sounds noted in the lower portion of the lungs. ABDOMEN: Soft, flat, nontender, bowel sounds present. EXTREMITIES: Without any edema. LABORATORY DATA: CBC today: WBC count was normal, hemoglobin 9.0, hematocrit 26.7, platelet count was normal. CMP this morning: BUN 88, creatinine 1.67, sodium 129. Chest x-ray, one-view, for the patient shows evidence of bilateral pleural fluid. Ultrasound of the chest was personally performed, shows [id number] sized bilateral pleural fluid noted. Ultrasound of the chest was performed personally at the bedside today. IMPRESSION: 1. Bilateral pleural fluid was noted with congestive heart failure, stable and unchanged. 2. Resolution of bradyarrhythmia secondary to medication use with history of atrial fibrillation, currently noted with tachycardia and resolution of hypotension. PLAN OF TREATMENT: The patient has been given dopamine in the last 24 hours, which has been discontinued this morning. Assessment for thoracentesis in the morning for the patient to be done. Other supportive therapy and plan of management care. [place], [place] PROGRESS NOTE NAME: MUMTAZ BRAR UNIT #: [id number] ROOM: [facility] DOCTOR: BRETT ABRAMS MD BIRTHDATE: [birth year] BRETT DALTON MD CM:PNTRANS 1441 [id number] BRETT CRUZ MD 06/10/17 0037 interface
--- NOTE | ~2017-06-06 | PR ---
[place], [place] PROGRESS NOTE NAME: [id number] UNIT #: [id number] ROOM: 401 DOCTOR: KRYSTLE CRUZ MD,BRETT BIRTHDATE: [birth year] DOS: 06/13/2017 PULMONARY PROGRESS NOTE SUBJECTIVE: The patient noted comfortable at this time, resting on the bed. The patient has not been noted symptoms of chest pain. Still complained of dizziness, intermittent tachycardia is noted, atrial fibrillation with rapid ventricular response, which has been gradually improving. The patient was continued on diuretics. OBJECTIVE: VITAL SIGNS: Normal temperature, respiratory rate 18, heart rate 94, blood pressure 116/69. Pulse oxygen saturation 2 liters nasal cannula was 96% saturation. HEENT: Age-related changes. NECK: Supple. CARDIOVASCULAR: S1, S2 is audible. LUNGS: Noted without any wheeze or crackles. ABDOMEN: Soft, nontender. LABORATORY DATA: CBC was noted with a hemoglobin 8, hematocrit 24.9. WBC count normal in the BMP, BUN 56, creatinine 1.25. The sodium was noted 132. IMPRESSION: The patient with congestive heart failure, bilateral transudative pleural fluid, status post thoracentesis with acute kidney injury, atrial fibrillation with intermittent rapid ventricular response. PLAN OF TREATMENT: Repeat the chest x-ray in the morning to reassess for any reaccumulation of pleural fluid. Continuation in the meantime other previous therapy, plan of management and care. Usual treatment. BRETT DALTON MD CM:PNTRANS 1537 [id number] BRETT CRUZ MD 06/13/17 2247 interface
--- NOTE | ~2017-06-06 | PR ---
[place], [place] PROGRESS NOTE NAME: MUMTAZ BRAR UNIT #: [id number] ROOM: 401 DOCTOR: ARETHA JUDGE MD BIRTHDATE: [birth year] DOS: 06/13/2017 SUBJECTIVE: The patient was seen at her bedside today, 06/13/2017 for a followup of her atrial fibrillation and diastolic heart failure. She continues to have episodes where she feels ill. Her breathing has been stabilized and she states that she is walking in the weaver with assistance. PHYSICAL EXAMINATION: VITAL SIGNS: Today, her pulse is 95 and irregularly irregular. Blood pressure is 116/69. She is afebrile. NECK: Supple. She has no jugular distention. Carotids are full. LUNGS: Respirations are unlabored. Chest has decreased breath sounds at the bases, but no wheezes or rales. HEART: Has an irregularly irregular rhythm without murmurs or gallops. ABDOMEN: Soft and normally active. EXTREMITIES: Showed no edema. LABORATORY DATA: Show that her hemoglobin has decreased over the last 3 days from 10.1-8.0. She does have a degree of renal insufficiency as well with a creatinine of 1.25 and a BUN of 56, GFR of 41. IMPRESSION: 1. Chronic diastolic heart failure. 2. Atrial fibrillation with rapid ventricular response. 3. Pleural effusions due to chronic diastolic heart failure. 4. Anemia. 5. Renal insufficiency. PLAN: The patient is not wheezing and her bronchodilator therapies may be contributing to her tachycardia, so I discontinued nebulizer treatments today. In addition, I note that her renal functions have deteriorated somewhat, so we will decrease the dose of her rivaroxaban. I encouraged her to maintain increased activity as much as possible. I do not believe that we have much more room to adjust her medications. If she continues to tolerate the current dose of diltiazem, we will probably switch it to once a day dosage of the next day or so. I thank the hospitalist physicians for asking our advice regarding her care. [place], [place] PROGRESS NOTE NAME: AUREA BRARFARTUN Daigle UNIT #: [id number] ROOM: 401 DOCTOR: ARETHA JUDGE MD BIRTHDATE: [birth year] ARETHA JUDGE MD CM:PNTRANS 6 8 ARETHA JUDGE MD 06/13/17915 interface
--- NOTE | ~2017-06-06 | PR ---
[place], [place] PROGRESS NOTE NAME: MUMTAZ BRAR UNIT #: [id number] ROOM: [facility] DOCTOR: KRYSTLE CRUZ MD,BRETT BIRTHDATE: [birth year] DOS: 06/08/2017 SUBJECTIVE: The patient has been noted with pallorness at this time and also noted significant hypotension, which occurred this morning. She was also noted to have bradycardia with heart rate about 45-50. The patient has been ordered intravenous fluid challenge by the cardiology services. OBJECTIVE: VITAL SIGNS: For the patient, normal temperature, respiratory 20, heart rate of 79. Previously, blood pressure 83/40, 116/50. The pulse oxygen saturation on 2 liters nasal cannula 98% saturation. HEENT: Examination shows no new changes. NECK: Supple. CARDIOVASCULAR: S1, S2 audible. LUNGS: The patient was noted without any wheezing or crackles. Decreased breath in lower portion of the lungs bilaterally. ABDOMEN: Soft, nontender. EXTREMITIES: Without any edema. LABORATORY DATA: BMP: BUN 87, creatinine 1.74 today was noted, sodium 129. CBC: Hemoglobin 8.1, hematocrit 25.2, platelet count 187,000. IMPRESSION: The patient with hypotension at this time, etiology is unclear. Bilateral pleural fluid, area of compression, atelectasis, rule out pneumonia. PLAN OF TREATMENT: Continue the management of hypotension and bradyarrhythmias per Cardiology services. The thoracentesis that was planned to be done today will be canceled and most likely reschedule for the patient later on upon stability of the patient's overall medical status. BRETT DALTON MD CM:PNTRANS [id number] BRETT CRUZ MD 06/08/17 1253 interface
--- NOTE | ~2017-06-06 | PR ---
[place], [place] PROGRESS NOTE NAME: MUMTAZ BRAR UNIT #: [id number] ROOM: 401 DOCTOR: KRYSTLE CRUZ MD,BRETT BIRTHDATE: [birth year] DOS: 06/12/2017 ADDENDUM ____ The pleural fluid was noted without any bacterial growth. The patient will be continued on the diuretic therapy, other medical management, oxygen supplementation, medical management, atrial fibrillation already been done by the Cardiology services. BRETT DALTON MD CM:SOFY 1303 [id number] BRETT CRUZ MD 06/12/17 1745 interface
--- NOTE | ~2017-06-06 | PR ---
[place], [place] PROGRESS NOTE NAME: MUMTAZ BRAR [facility] #: [id number] UNIT #: [id number] ROOM: 401 DOCTOR: BRETT ABRAMS MD BIRTHDATE: [birth year] DOS: 06/11/2017 SUBJECTIVE: The patient was noted comfortable at this time without any acute distress. Shortness of breath has been noted much improved after thoracentesis, which was completed yesterday. Denies any pain in the lower extremities. Denies symptoms of nausea, vomiting, or abdominal pain. Denies symptoms of diarrhea or constipation. Denies any symptoms of hematuria. Denies any symptoms of headache or dizziness. Remaining systems were reviewed, they were noted all negative. OBJECTIVE: VITAL SIGNS: For the patient, which were recorded, shows normal temperature, respiratory rate 18, heart rate 116, blood pressure 125/72. Pulse oxygen saturation with the patient on 2 liters nasal cannula 97% saturation recorded. HEENT: Head was atraumatic. Eyes nonicterus. NECK: Supple. CARDIOVASCULAR: S1, S2 is audible. LUNGS: Much improved air entry of the lungs was noted today with minimal crackles in the lung bases. ABDOMEN: Soft, flat, nontender. EXTREMITIES: Without acute edema. SKIN: Visible skin, no lesions or rashes. MUSCULOSKELETAL: Without any acute deformities. LABORATORY DATA: The analysis of the pleural fluid yesterday for this patient, the right pleural fluid was noted with a total of 1094, WBCs 1000, RBCs with 89% lymphocytes. The left pleural fluid cell count analysis of the patient noted with WBC 57, 75% segmented neutrophils, 11% neutrophils. The chemistry of the right pleural fluid of the patient was noted with pH of 7.40, glucose 155, total protein of 2.6, LDH of 130, albumin 1.5, cholesterol less than 50. The chemistry for this patient of the left pleural fluid noted with glucose 158, total protein 2.6, LDH 164, pH of 7.41. The culture of the pleural fluid are pending. Gram stain was not noted with any organism. IMPRESSION: Lymphocyte-predominant bilateral pleural fluid, appeared to be transudative effusion at this time, most likely underlying congestive heart failure would be likely cause. The improvement in the oral respiratory status noted with reduction and improvement in symptoms of shortness of breath with the bradyarrhythmia for this patient was noted better. Currently, the patient has been noted with tachycardia intermittently with atrial fibrillation. PLAN OF MANAGEMENT: Continuation of the current therapy, plan of management. Monitor the cytology results of the pleural fluid. Bronchodilators to be continued as previously. Oxygen supplementation, titrate to maintain a pulse oxygen saturation 90% greater. Usual care. All other supportive therapy, plan of management and care. [place], [place] PROGRESS NOTE [id number] UNIT #: [id number] ROOM: [facility] DOCTOR: BRETT ABRAMS MD BIRTHDATE: [birth year] BRETT DALTON MD CM:PNTRANS [id number] BRETT CRUZ MD 06/11/17 2324 interface
--- NOTE | ~2017-06-06 | CON ---
[place], [place] REPORT OF CONSULTATION NAME: MUMTAZ BRAR [facility] #: [id number] UNIT #: [id number] ROOM: 510 DOCTOR: BRETT ABRAMS MD BIRTHDATE: [birth year] DOS: 06/07/2017 PULMONARY CONSULTATION, EVALUATION, AND MANAGEMENT CONSULTATION REQUESTED BY: Hospitalist service. REASON FOR CONSULTATION: Assess the patient's current symptoms of ongoing shortness of breath and bilateral pleural effusions. HISTORY OF PRESENT ILLNESS: This is an 87-year-old white female patient, who has been seen in the office on 06/04/2017. The patient was seen in the office first time for assessment of symptoms, ongoing shortness of breath. She was assessed and noted with symptoms of shortness of breath, which was occurring at rest and worsened with minimal exertion. She has been seen by the Cardiology Services and was getting the oral Lasix as well. The patient stated that she has not been improving with that. She was assessed and noted with evidence of bilateral moderate size pleural effusion. She was started on the Lasix. The patient 60 mg p.o. daily for the next 3 days. In case of no response to treatment, she was advised to go to the Emergency Room. She had been awaiting to be seen by Dr. Webber. She was previously seen by Dr. Saavedra. The patient fell down at home. The patient also developed chest pain, which was radiating to the back and the neck. The patient passed out at home as well. She had been assessed in the Emergency Room yesterday and hospitalized for further assessment and management. She had a CT scan of the neck, head, and chest was done as well. REVIEW OF SYSTEMS: CONSTITUTIONAL: Fatigue and tiredness. The patient reported without symptoms of fever or chills. General weakness and fatigue was reported. EYES: Denies any burning, redness, or tenderness. EARS, NOSE, THROAT SYMPTOMS: Denies sore throat, hoarseness, otalgia, postnasal drainage, or epistaxis. CARDIOVASCULAR: Denies any edema of the lower extremities. Denies any anginal pain, but reported the pain in the chest after a fall, which seemed to be stable. GASTROINTESTINAL: Denies abnormal weight loss, dysphagia, nausea, vomiting, diarrhea, abdominal pain, hematemesis, and melena at the present time. GENITOURINARY: No dysuria, suprapubic pain, hematuria, urinary incontinence, or hesitancy. MUSCULOSKELETAL: Denies acute joint pain, redness, or tenderness. SKIN: Denies abnormal lesions or rashes. MUSCULOSKELETAL: Noted without any acute deformities. CENTRAL NERVOUS SYSTEM: No dizziness, headache, diplopia, syncopal episodes, or seizures. Remaining systems were reviewed. They were noted all negative. PAST MEDICAL HISTORY: 1. Known with chronic atrial fibrillation on anticoagulation with Xarelto. 2. Coronary artery disease. [place], [place] REPORT OF CONSULTATION NAME: MUMTAZ BRAR UNIT #: [id number] ROOM: [facility] DOCTOR: BRETT ABRAMS MD BIRTHDATE: [birth year] 3. Diabetic neuropathy. 4. Type 2 diabetes mellitus. 5. Rheumatoid arthritis. 6. Sick sinus syndrome. 7. Type 2 diabetes mellitus. 8. Influenza A infection, which has been treated in March 2017. 9. History of gastroesophageal reflux. 10. Essential hypertension. 11. Degenerative arthritis. PAST SURGICAL HISTORY: 1. Partial hysterectomy. 2. Cardiac catheterization. 3. EGD and colonoscopy. SOCIAL HISTORY: The patient is , has 2 children, lives at home. Nonsmoker lifetime. There was no history of alcohol use or illicit drug use reported as well. FAMILY HISTORY: The patient's father at 72 years with complications of cerebral hemorrhage. Mother at 70 years with complications related to acute myocardial infarction. CURRENT MEDICATIONS: Administered were noted use of Imdur, vitamin D, Cardizem, metoprolol tartrate, gabapentin, losartan, Xarelto, sliding insulin coverage, Dulcolax, IV vancomycin, Zosyn, Levaquin, and other p.r.n. medications. DRUG ALLERGIES: No known drug allergies. PHYSICAL EXAMINATION: GENERAL: An 87-year-old female currently noted comfortable, without any acute distress. Height of 5 feet, weight of 198 pounds, BMI 19. VITAL SIGNS: Vital signs, which are recorded showed normal temperature, respiratory rate 18-20, heart rate of 110-78. Blood pressure 132/82-102/58. Orthostatic changes noted positive yesterday, which were assessed. The pulse oxygen saturation on room air was noted as 95% saturation. HEENT: Head is atraumatic. Eyes, nonicterus, age-related changes. NECK: Supple. JVD was mildly elevated as well. CARDIOVASCULAR: S1, S2 is audible. LUNGS: Noted decreased breath sounds in lower portion of the lungs bilaterally. There were no wheezing or crackles. ABDOMEN: Soft, nontender. EXTREMITIES: Without any acute edema. SKIN: Visible skin, no lesions or rashes. MUSCULOSKELETAL: Without any acute deformities. CENTRAL NERVOUS SYSTEM: Cranial nerves 2-12 intact. No focal deficit. LABORATORY AND DIAGNOSTIC DATA: CBC that was done on admission, WBC count 17.2, hemoglobin 10.8, hematocrit 32.4, platelet count was normal. INR 1.2, PTT normal yesterday. CMP yesterday, BUN 65, creatinine 1.51, sodium 129, chloride [place], [place] REPORT OF CONSULTATION NAME: MUMTAZ BRAR UNIT #: [id number] ROOM: [facility] DOCTOR: BRETT ABRAMS MD BIRTHDATE: [birth year]. Lactic acid yesterday noted 1.0. The troponin 3 sets in the last 24 hours were normal. CBC this morning, hemoglobin 9.4, hematocrit 28.7, WBC count normal, platelet count normal. BMP: BUN 76, creatinine 1.60, glucose 127. The sodium was still noted low at 129. Review of the radiology data was personally done. The CT scan of the head was done on admission, noted negative. CT scan of cervical spine was also noted without any acute abnormalities or displacement or any fractures of the cervical spine. CT scan of the abdomen and pelvis was also done on 06/06/2017, which showed moderate sized bilateral pleural fluid area of compression atelectasis in the lungs bilaterally. The CT scan of the abdomen reported with evidence of cholelithiasis as well as diverticulosis noted without radiologic evidence of diverticulitis. Chest x-ray, bilateral pleural effusions. IMPRESSION: 1. The patient who has been currently admitted to the hospital noted persistent bilateral pleural fluid, most likely due to the congestive heart failure. Possible pneumonia has been considered, but clinically appeared to be less likely. 2. Acute kidney injury most likely secondary to intravascular volume depletion. The patient to use diuretics. 3. Congestive heart failure, diastolic dysfunction. 4. Recent fall, musculoskeletal chest pain as well. 5. Leukocytosis, most likely seemed to be resolved. 6. History of atrial fibrillation noted in the controlled range as well. 7. Overall severe debility secondary to ongoing multiple medical illnesses. PLAN OF TREATMENT: The patient will be continued on antibiotics at the present time, no changes need to be made. The drainage of the pleural fluid will be done with ultrasound assessment tomorrow morning since the patient noted anticoagulation that needs to be placed on hold. Continue to maximize the cardiac management with assessment by the Cardiology Services. All other treatment and medication to be continued without any changes. The antibiotic will be discontinued once the pneumonia is excluded per pleural fluid analysis. Other supportive therapy, plan of management, and care plan per usual treatment. Supportive plan of therapy and care as well. Thanks for allowing me to participate in the care of this patient. [place], [place] REPORT OF CONSULTATION NAME: MUMTAZ BRAR UNIT #: [id number] ROOM: [facility] DOCTOR: BRETT ABRAMS MD BIRTHDATE: [birth year] BRETT DALTON MD CM:CONSTR:REPORT OF CONSULTATION 1330 06/08/17 0227 interface
--- NOTE | ~2017-06-06 | PR ---
[place], [place] PROGRESS NOTE NAME[id number] UNIT #: [id number] ROOM: 401 DOCTOR: KRYSTLE CRUZ MD,BRETT BIRTHDATE: [birth year] DOS: 06/12/2017 SUBJECTIVE: She was complaining of dizziness, but does note symptoms of acute shortness of breath. The patient's coughing or chest pain. Denies symptoms of hemoptysis. She was noted with tachycardia. The patient did fibrillation. Heart rate 115 morning as well. OBJECTIVE: VITAL SIGNS: For the patient which has been recorded showed normal temperature, respiratory rate 20, heart rate 72, blood pressure 118/80-120/58. The pulse oxygen saturation of the patient recorded as room air 100% saturation. HEENT: Examination shows no acute change. NECK: Supple. CARDIOVASCULAR: S1, S2 is audible. LUNGS: The patient was noted without any wheeze or crackles. ABDOMEN: Soft, nontender. EXTREMITIES: Without any acute edema. LABORATORY DATA: BMP today: BUN 52, creatinine 1.19. IMPRESSION: 1. Bilateral transudative pleural fluid, status post thoracentesis for the patient is improving respiratory status. 2. Acute congestive heart failure as well. 3. Dizziness. The patient had atrial fibrillation, currently noted with intermittent rapid ventricular response. BRETT DALTON MD CM:PNTRANS 1302 180 BRETT CRUZ MD 06/12/17 1801 interface
--- NOTE | ~2017-06-06 | PROC NOTE ---
[place], [place] PROCEDURE NOTE NAME: [id number] UNIT #: [id number] ROOM: [facility] DOCTOR: KRYSTLE CRUZ MDBRETT BIRTHDATE: [birth year] DOS: 06/10/2017 RIGHT-SIDED THORACENTESIS PREOPERATIVE DIAGNOSIS: Persistent moderate right pleural fluid. POSTOPERATIVE DIAGNOSES: The patient successful removal of 750 mL pleural fluid from the right pleural space without difficulty. PROCEDURE DESCRIPTION: Informed consent obtained for the patient. The site for the patient thoracentesis with ultrasound guidance at the bedside. Skin was cleaned with chlorhexidine solution. Local anesthetic administered in skin and intercostal space during administration of the local anesthetic. The right pleural space was entered. A small amount of fluid was aspirated. After that incision given in the skin for the patient. [place] thoracentesis catheter introduced into the incision without any difficulty. A total of 750 mL pleural fluid was removed including samples for this patient sent to the lab. The procedure well tolerated by the patient without any difficulty and complication. Post-thoracentesis, ultrasound shows good expansion of the lung. Pleural fluid sent for all the necessary samples. LEFT-SIDED THORACENTESIS PREOPERATIVE DIAGNOSIS: Persistent moderate left pleural fluid. POSTOPERATIVE DIAGNOSES: The patient successful removal of 450 mL pleural fluid from the left pleural space without difficulty. PROCEDURE DESCRIPTION: Informed consent obtained for the patient. The site for the patient thoracentesis earlier marked with ultrasound at the bedside. Skin was cleaned with chlorhexidine solution. Local anesthetic administered in skin and intercostal space during administration of the local anesthetic. The left pleural space was entered. A small amount of fluid was aspirated. After that incision given in the skin for the patient. [place] thoracentesis catheter introduced into the incision without any difficulty. A total of 450 mL pleural fluid was removed including samples for this patient sent to the lab. The procedure well tolerated by the patient without any difficulty and complication. Post-thoracentesis, ultrasound shows good expansion of the lung. Pleural fluid sent for all the necessary samples. Chest x-ray of the patient was done for post-thoracentesis was noted with a very small remaining pleural fluid. Otherwise, the lung remains to be fully expanded. There was no evidence of pneumothorax on the left side. The right side pleural fluid was also noted to be completely removed. [place], [place] PROCEDURE NOTE NAME: MUMTAZ BRAR [place] UNIT #: [id number] ROOM: 401 DOCTOR: KRYSTLE CRUZ MD,BRETT BIRTHDATE: [birth year] BRETT DALTON MD CM:PROCNOTE:PROCEDURE NOTE [id number] BRETT CRUZ MD
--- NOTE | ~2017-06-06 | EKG ---
[place], [place] ELECTROCARDIOGRAM REPORT NAME: MUMTAZ BRAR UNIT #: [id number] ROOM: [facility] DOCTOR: LIZA SHELDON,KELSI BIRTHDATE: [birth year] DOS: 06/08/2017 TIME: 7:42 a.m. IMPRESSION: 1. Atrial fibrillation with slow ventricular rate of 51. 2. Left ventricular hypertrophy. 3. Nonspecific ST-T changes in the lateral leads. 4. Normal QT interval. KELSI DE JESUS MD CM:EKGRPT:ELECTROCARDIOGRAM REPORT 1152 [id number] KELSI DE JESUS MD
--- NOTE | ~2017-06-06 | PR ---
[place], [place] PROGRESS NOTE NAME: AUREA BRARFARTUN Daigle UNIT #: [id number] ROOM: 401 DOCTOR: KELSI DE JESUS MD BIRTHDATE: [birth year] DOS: 06/09/2017 REASON FOR VISIT: Atrial fibrillation. SUBJECTIVE: The patient is feeling better. Her blood pressure and heart rates are slightly better today. Denies any chest pain or palpitations. No dizziness. No PND or orthopnea. REVIEW OF SYSTEMS: Review of the 8 systems negative except as mentioned above. PHYSICAL EXAMINATION: VITAL SIGNS: Blood pressure 118/66, pulse 110, respirations 18. RHYTHM STRIPS: Patient is in atrial fibrillation with slightly rapid heart rates about 110. GENERAL: Patient is alert, oriented, no acute distress. HEENT: Pupils round, equal. No jaundice. Tongue was moist and pharynx clear. NECK: Supple, no distended neck veins, no carotid bruit. CHEST: Symmetrical, nontender. LUNGS: A few scattered rhonchi, but good air entry bilaterally. HEART: Irregular, grade 1/6 systolic murmur. ABDOMEN: Benign, nontender. Bowel sounds normal. EXTREMITIES: No edema. Distal pulses palpable. SKIN: Warm and dry. No cyanosis, no clubbing. NEUROLOGIC: Patient is alert, oriented. RECTAL: Deferred. Medications and labs reviewed. IMPRESSION: 1. Atrial fibrillation, today with slight rapid ventricular rate. 2. Bradyarrhythmia, resolved. 3. Hypertension, resolved. 4. Acute failure. RECOMMENDATIONS: 1. Wean off and discontinue her dopamine. 2. Start metoprolol at low dose, 25 mg twice a day and adjust dose for her blood pressure and heart rates. 3. If she develops recurrent bradycardia, then she will need a permanent pacemaker and then metoprolol and Cardizem for tachycardia. 4. There is no family at bedside at the time of my examination. [place], [place] PROGRESS NOTE NAME: CORINAMUMTAZ GORE UNIT #: [id number] ROOM: 401 DOCTOR: KELSI DE JESUS MD BIRTHDATE: [birth year] KELSI DE JESUS MD CM:PNTRANS 0010 KELSI DE JESUS MD 06/10/17 0306 interface
--- NOTE | ~2017-06-06 | CON ---
[place], [place] REPORT OF CONSULTATION NAME: [facility]Z BRAR [facility] [id number] UNIT #: [id number] ROOM: 401 DOCTOR: AUGUSTO CASTELLON MD BIRTHDATE: [birth year] DOS: 06/09/2017 REASON FOR CONSULTATION: Acute kidney injury. HISTORY OF PRESENT ILLNESS: This is a very pleasant 87-year-old female, seems she has been in the hospital now a couple of days. She apparently fell at home ____ dog, did complain of some shortness of breath. I am not clear of the details. She has been on various doses of diuretics and apparently has had history of hyponatremia and acute kidney injury in the past. She has been seen by our service ____ was seen by our service in April here in the hospital. She eventually had a CT scan without contrast, which revealed bilateral effusions. The patient was started on diuretics and apparently there is a plan for a thoracentesis tomorrow. She was comfortable in ICU, sitting in a chair on nasal cannula. Her creatinine levels have increased to the upper ones range from presumed baseline in the low ones. I did see creatinine levels fluctuating at times and even under 1 with a presumed baseline somewhere in that range. The patient denies following with a cardiology consultants. She has been urinating adequately with diuretics. She does feel overall better. She denied any nausea, vomiting, fevers or chills. ALLERGIES: No known drug allergies. MEDICATIONS: From home included Lasix, Neurontin, Amaryl, Plaquenil, losartan, metoprolol, Xarelto, Januvia, vitamin D. PAST MEDICAL HISTORY: 1. Acute kidney injury in the past. 2. Anemia. 3. Coronary artery disease. 4. Cholelithiasis. 5. Atrial fibrillation. 6. Degenerative joint disease. 7. Diabetic neuropathy. 8. Diverticulosis. 9. Gastritis. 10. GERD. 11. History of GI bleed. 12. Hiatal hernia. 13. Hypertension. 14. Hyponatremia. 15. Rheumatoid arthritis. 16. Vitamin D deficiency. 17. Diabetes mellitus. 18. Hysterectomy. 19. Heart catheterization. FAMILY HISTORY: Negative for chronic kidney disease, otherwise noncontributory. SOCIAL HISTORY: No alcohol, illicit drugs, or tobacco. [place], [place] REPORT OF CONSULTATION NAME: MUMTAZ BRAR UNIT #: [id number] ROOM: 401 DOCTOR: RAVINDER SHELDONAUGUSTO Porter BIRTHDATE: [birth year] REVIEW OF SYSTEMS: As per HPI, otherwise a 10-point review of systems was reviewed and was negative. PHYSICAL EXAMINATION: VITAL SIGNS: Temperature 97.9, pulse 117, respiratory rate 20, blood pressure was 129/95. GENERAL: She is awake, alert, pleasant, sitting in a chair, in no acute distress. HEENT: Shows no appreciable JVD. Sclerae are anicteric. Mucous members appeared moist. Oropharynx is clear. NECK: Supple. Trachea was midline. There is no neck lymphadenopathy or thyromegaly. LUNGS: Diminished breath sounds. There are no appreciable wheezes. No tactile fremitus. She is not using accessory muscles of respiration. HEART: Normal S1, S2. No rub, thrill or gallop. ABDOMEN: Soft, nontender. There is organomegaly, rigidity, rebound or guarding. There is no CVA tenderness. EXTREMITIES: Showed no edema. There is no lower extremity lymphadenopathy. Distal pulses are 2+. SKIN: Showed no overt rash. There is no petechia or purpura. Skin temperature is warm. NEUROLOGIC: She was awake, alert and following commands. Cranial nerves intact. LABORATORY DATA: Hemoglobin 9.0, white count of 8.9, platelets of 210. Sodium 129, potassium 4.5, CO2 22, BUN 88, creatinine 1.7, calcium 8.0, albumin of 2.3. IMPRESSION: 1. Acute kidney injury with a baseline creatinine in the range of 1/low 1s, likely related to prerenal factors. 2. Pleural effusions. 3. Hyponatremia, multifactorial etiology. 4. Anemia. 5. Leukocytosis with improvement with antibiotics. 6. History of diabetes mellitus. PLAN: 1. We will discontinue the ARB for now. 2. Diuretics as felt needed. 3. Dose medications for current creatinine clearance. 4. Replace electrolytes as needed. 5. Avoid contrast studies. 6. Continue ongoing supportive care. Currently, there is no need for renal replacement therapy. Thank you for this consultation. We will follow with you. [place], [place] REPORT OF CONSULTATION NAME: MUMTAZ BRAR UNIT #: [id number] ROOM: [facility] DOCTOR: AUGUSTO CASTELLON MD BIRTHDATE: [birth year] AUGUSTO CASTELLON MD CM:CONSTR:REPORT OF CONSULTATION 1618 06/09/17 2148 interface
--- NOTE | ~2017-06-06 | CON ---
[place], [place] REPORT OF CONSULTATION NAME: MUMTAZ BRAR UNIT #: [id number] ROOM: [facility] DOCTOR: KELSI DE JESUS MD BIRTHDATE: [birth year] DOS: 06/08/2017 REASON FOR VISIT: The patient in atrial fibrillation and diastolic heart failure. HISTORY OF PRESENT ILLNESS: The patient noted she became bradycardic and hypotensive today. Her medications were held. She received some IV fluids and subsequently she was transferred to Intensive Care Unit and started on low-dose dopamine. She denies any chest pain or shortness of breath. She is feeling tired, but no dizzy, no orthopnea, no neurologic symptoms. REVIEW OF SYSTEMS: Review of the 8 systems is negative except as mentioned above. VITAL SIGNS: Blood pressure 104/46, pulse 86, respiratory rate 20. RHYTHM STRIPS: The patient was in atrial fibrillation on the monitor. Medications, labs and rhythm strips reviewed. PHYSICAL EXAMINATION: GENERAL: Alert and comfortable, in no acute distress. HEENT: Pupils are round and equal. No jaundice. NECK: Supple, no distended neck veins, no carotid bruit. CHEST: Symmetrical, nontender. LUNGS: A few scattered rhonchi. Fair air entry bilaterally. HEART: Irregularly irregular, grade 1/6 systolic murmur. ABDOMEN: Benign, nontender. Bowel sounds normal. EXTREMITIES: Showed trace edema. Distal pulses palpable. SKIN: Warm and dry. No cyanosis, no clubbing. NEUROLOGIC: The patient is alert and oriented. No focal neurologic deficit. RECTAL: Deferred. MEDICATIONS: Reviewed. IMPRESSION: 1. Atrial fibrillation, today with arrhythmia. 2. Mild hypotension. 3. Anemia. 4. Chronic diastolic heart failure. 5. Acute renal failure. RECOMMENDATIONS: 1. Continue her dopamine for hypotension and bradycardia. Currently, her blood pressures and heart rates are relatively stable, try to wean off her dopamine and resume her metoprolol and diuretics as needed. 2. There is no family at bedside at the time of my examination. [place], [place] REPORT OF CONSULTATION NAME: MUMTAZ BRAR UNIT #: [id number] ROOM: [facility] DOCTOR: KELSI DE JESUS MD BIRTHDATE: [birth year] KELSI DE JESUS MD CM:CONSTR:REPORT OF CONSULTATION 1653 06/08/17 2214 interface
[~2017-06-06 06:03] MED LIST changes: +FLORASTOR250 MG PO; +OMEPRAZOLE20 M2 PO; +PROMETHAZINE25 MG R
[2017-06-06 06:22] LABS: BASO % 0.1 % (0.0-1.0); EOS % 0.1 % (1.0-4.0); HEMATOCRIT 32.4 % (37.0-47.0); HEMOGLOBIN 10.8 g/dl (12.0-16.0); LYMPH # 1.3 10*3/uL (1.3-4.4); LYMPH % 7.3 % (27.0-41.0); MEAN CELL VOLUME 91.3 fl (81.0-99.0); MEAN CORPUSCULAR HGB 30.4 pg (27.0-31.0); MEAN CORPUSCULAR HGB CONC 33.3 g/dl (33.0-37.0); MEAN PLATELET VOLUME 10.9 fl (9.6-12.3); MONO # 1.2 10*3/uL (0.1-1.0); NEUT # 14.6 10*3/uL (2.3-7.9); NEUT % 84.8 % (47.0-73.0); PLATELET COUNT AUTOMATED 237 10*3/uL (130-400); RED BLOOD COUNT 3.55 10*6/uL (4.10-5.10); WHITE BLOOD COUNT 17.2 10*3/uL (4.8-10.8)
[2017-06-06 06:37] LABS: ACT PARTIAL THROMBO TIME 26.1 SECONDS (20.8-31.5); INTERNATIONAL NORM RATIO 1.2 (2.0-3.5)
[2017-06-06 06:40] LABS: ALBUMIN 3.2 gm/dl (3.1-4.5); ALKALINE PHOSPHATASE 32 U/L (45-117); BUN 65 mg/dl (7-24); CHLORIDE 92 mmol/L (98-107); CREATININE 1.51 mg/dL (0.55-1.02); POTASSIUM 4.4 mmol/L (3.5-5.1); SGOT/AST 14 IU/L (3-35); SGPT/ALT 24 U/L (12-78); SODIUM 129 mmol/L (136-145); TOTAL PROTEIN 7.1 gm/dL (6.4-8.2)
[2017-06-06 06:56] LABS: TROPONIN I < 0.015 ng/ml (<0.045)
[2017-06-06 08:37] LABS: BILIRUBIN NEGATIVE (NEGATIVE); BLOOD TRACE-LYSED (NEGATIVE); CLARITY CLEAR (CLEAR); COLOR YELLOW (YELLOW); GLUCOSE NEGATIVE (NEGATIVE); KETONE NEGATIVE (NEGATIVE); LEUKO ESTERASE TRACE (NEGATIVE); NITRITE NEGATIVE (NEGATIVE); PH 5.5 (5.0-9.0); UROBILINOGEN 0.2 E.U./dl (0.2-1.0)
[2017-06-06 09:21] LABS: BACTERIA 2+; WBC 31-40 wbc/hpf (0-5)
[2017-06-06] MEDS ORDERED: LASIX40 MG PO (09:35)
[2017-06-07] VITALS: BP 106/47
[2017-06-07 06:21] LABS: BASO % 0.1 % (0.0-1.0); EOS % 0.2 % (1.0-4.0); HEMATOCRIT 28.7 % (37.0-47.0); HEMOGLOBIN 9.4 g/dl (12.0-16.0); LYMPH # 1.5 10*3/uL (1.3-4.4); LYMPH % 15.6 % (27.0-41.0); MEAN CELL VOLUME 90.8 fl (81.0-99.0); MEAN CORPUSCULAR HGB 29.7 pg (27.0-31.0); MEAN CORPUSCULAR HGB CONC 32.8 g/dl (33.0-37.0); MEAN PLATELET VOLUME 11.2 fl (9.6-12.3); MONO % 10.4 % (3.0-9.0); NEUT % 72.7 % (47.0-73.0); PLATELET COUNT AUTOMATED 180 10*3/uL (130-400); RED BLOOD COUNT 3.16 10*6/uL (4.10-5.10); WHITE BLOOD COUNT 9.7 10*3/uL (4.8-10.8)
[2017-06-07 07:00] LABS: CREATININE 1.6 mg/dL (0.55-1.02); PHOSPHOROUS 3.7 mg/dL (2.5-4.9); POTASSIUM 4.1 mmol/L (3.5-5.1)
[2017-06-07 07:09] LABS: THYROID STIM HORMONE (HS) 1.63 uIU/ml (0.358-4.75)
[2017-06-07 08:40] VITALS: BP 102/68
[2017-06-07 08:48] LABS: VITAMIN D, 25-HYDROXY 24.1 ng/mL (30-100)
[2017-06-07 12:11] VITALS: BP 102/52
[2017-06-07 16:25] VITALS: BP 124/73
[2017-06-07 20:00] VITALS: BP 139/62
[2017-06-07 22:25] VITALS: BP 116/66
[2017-06-08] VITALS (7 sets, daily range): BP systolic 83–117; BP diastolic 40–52
[2017-06-08 06:45] LABS: BASO % 0.1 % (0.0-1.0); EOS # 0.1 10*3/uL (0.0-0.4); EOS % 0.7 % (1.0-4.0); HEMATOCRIT 25.2 % (37.0-47.0); HEMOGLOBIN 8.1 g/dl (12.0-16.0); LYMPH # 2.1 10*3/uL (1.3-4.4); LYMPH % 22.3 % (27.0-41.0); MEAN CORPUSCULAR HGB 29.6 pg (27.0-31.0); MEAN CORPUSCULAR HGB CONC 32.1 g/dl (33.0-37.0); MEAN PLATELET VOLUME 11.6 fl (9.6-12.3); MONO # 1.1 10*3/uL (0.1-1.0); MONO % 11.9 % (3.0-9.0); NEUT # 6.2 10*3/uL (2.3-7.9); NEUT % 64.3 % (47.0-73.0); PLATELET COUNT AUTOMATED 187 10*3/uL (130-400); RED BLOOD COUNT 2.74 10*6/uL (4.10-5.10); RED CELL DISTRI WIDTH 13.2 % (0-14.5); WHITE BLOOD COUNT 9.6 10*3/uL (4.8-10.8)
[2017-06-08 07:32] LABS: POTASSIUM 4.5 mmol/L (3.5-5.1)
[2017-06-08 07:36] LABS: ALBUMIN 2.3 gm/dl (3.1-4.5); CREATININE 1.74 mg/dL (0.55-1.02); TOTAL PROTEIN 5.6 gm/dL (6.4-8.2)
[2017-06-09] VITALS (29 sets, daily range): BP systolic 83–134; BP diastolic 41–95
[2017-06-09 05:33] LABS: ALBUMIN 2.3 gm/dl (3.1-4.5); CREATININE 1.67 mg/dL (0.55-1.02); POTASSIUM 4.5 mmol/L (3.5-5.1); TOTAL PROTEIN 5.9 gm/dL (6.4-8.2)
[2017-06-09 05:57] LABS: BASO % 0.2 % (0.0-1.0); EOS # 0.1 10*3/uL (0.0-0.4); EOS % 0.8 % (1.0-4.0); HEMATOCRIT 26.7 % (37.0-47.0); LYMPH # 1.9 10*3/uL (1.3-4.4); LYMPH % 21.5 % (27.0-41.0); MEAN CELL VOLUME 91.4 fl (81.0-99.0); MEAN CORPUSCULAR HGB 30.8 pg (27.0-31.0); MEAN CORPUSCULAR HGB CONC 33.7 g/dl (33.0-37.0); MEAN PLATELET VOLUME 11.4 fl (9.6-12.3); MONO # 0.9 10*3/uL (0.1-1.0); MONO % 10.1 % (3.0-9.0); NEUT # 5.9 10*3/uL (2.3-7.9); NEUT % 66.4 % (47.0-73.0); PLATELET COUNT AUTOMATED 210 10*3/uL (130-400); RED BLOOD COUNT 2.92 10*6/uL (4.10-5.10); RED CELL DISTRI WIDTH 13.1 % (0-14.5); WHITE BLOOD COUNT 8.9 10*3/uL (4.8-10.8)
[2017-06-10] VITALS: BP 110/65
[2017-06-10 08:00] VITALS: BP 123/72
[2017-06-10 08:48] LABS: BASO % 0.1 % (0.0-1.0); EOS # 0.1 10*3/uL (0.0-0.4); EOS % 1.2 % (1.0-4.0); HEMOGLOBIN 10.1 g/dl (12.0-16.0); LYMPH # 2.2 10*3/uL (1.3-4.4); LYMPH % 25.3 % (27.0-41.0); MEAN CORPUSCULAR HGB CONC 32.6 g/dl (33.0-37.0); MEAN PLATELET VOLUME 10.2 fl (9.6-12.3); MONO # 0.8 10*3/uL (0.1-1.0); MONO % 9.7 % (3.0-9.0); NEUT # 5.5 10*3/uL (2.3-7.9); NEUT % 63.1 % (47.0-73.0); PLATELET COUNT AUTOMATED 255 10*3/uL (130-400); RED BLOOD COUNT 3.37 10*6/uL (4.10-5.10); RED CELL DISTRI WIDTH 13.2 % (0-14.5); WHITE BLOOD COUNT 8.7 10*3/uL (4.8-10.8)
[2017-06-10 09:03] LABS: ALBUMIN 2.6 gm/dl (3.1-4.5); CREATININE 1.33 mg/dL (0.55-1.02); POTASSIUM 4.6 mmol/L (3.5-5.1); TOTAL PROTEIN 6.1 gm/dL (6.4-8.2)
[2017-06-10 11:06] LABS: BODY FLUID WBC 1094 /uL
[2017-06-10 11:14] LABS: BODY FLUID WBC 557 /uL
[2017-06-10 11:44] LABS: BF LYMPHOCYTES 89 %; BF MACROPHAGES 3 %; BF MESOTHELIALS 2 %; BF NEUTROPHILS 6 %
[2017-06-10 11:47] LABS: BF LYMPHOCYTES 75 %; BF MACROPHAGES 6 %; BF MESOTHELIALS 8 %; BF NEUTROPHILS 11 %
[2017-06-10 12:00] VITALS: BP 120/62
[2017-06-10 16:00] VITALS: BP 118/70
[2017-06-10 20:00] VITALS: BP 135/63
[2017-06-11] VITALS (7 sets, daily range): BP systolic 106–146; BP diastolic 48–87
[2017-06-11 07:14] LABS: BASO % 0.1 % (0.0-1.0); EOS # 0.1 10*3/uL (0.0-0.4); EOS % 0.9 % (1.0-4.0); HEMATOCRIT 29.6 % (37.0-47.0); HEMOGLOBIN 9.4 g/dl (12.0-16.0); LYMPH # 2.5 10*3/uL (1.3-4.4); LYMPH % 24.5 % (27.0-41.0); MEAN CELL VOLUME 93.4 fl (81.0-99.0); MEAN CORPUSCULAR HGB 29.7 pg (27.0-31.0); MEAN CORPUSCULAR HGB CONC 31.8 g/dl (33.0-37.0); MEAN PLATELET VOLUME 10.7 fl (9.6-12.3); MONO # 1.1 10*3/uL (0.1-1.0); MONO % 10.7 % (3.0-9.0); NEUT # 6.5 10*3/uL (2.3-7.9); NEUT % 62.9 % (47.0-73.0); PLATELET COUNT AUTOMATED 263 10*3/uL (130-400); RED BLOOD COUNT 3.17 10*6/uL (4.10-5.10); RED CELL DISTRI WIDTH 13.1 % (0-14.5); WHITE BLOOD COUNT 10.3 10*3/uL (4.8-10.8)
[2017-06-11 07:41] LABS: ALBUMIN 2.4 gm/dl (3.1-4.5); CREATININE 1.24 mg/dL (0.55-1.02); POTASSIUM 4.5 mmol/L (3.5-5.1); TOTAL PROTEIN 6.1 gm/dL (6.4-8.2)
[2017-06-12] VITALS: BP 151/65
[2017-06-12 06:16] LABS: BASO % 0.1 % (0.0-1.0); EOS # 0.1 10*3/uL (0.0-0.4); EOS % 0.9 % (1.0-4.0); HEMATOCRIT 25.2 % (37.0-47.0); HEMOGLOBIN 8.4 g/dl (12.0-16.0); LYMPH # 2.3 10*3/uL (1.3-4.4); LYMPH % 27.3 % (27.0-41.0); MEAN CORPUSCULAR HGB 30.7 pg (27.0-31.0); MEAN CORPUSCULAR HGB CONC 33.3 g/dl (33.0-37.0); MEAN PLATELET VOLUME 10.6 fl (9.6-12.3); MONO % 11.3 % (3.0-9.0); NEUT # 5.1 10*3/uL (2.3-7.9); NEUT % 59.9 % (47.0-73.0); PLATELET COUNT AUTOMATED 248 10*3/uL (130-400); RED BLOOD COUNT 2.74 10*6/uL (4.10-5.10); RED CELL DISTRI WIDTH 13.1 % (0-14.5); WHITE BLOOD COUNT 8.5 10*3/uL (4.8-10.8)
[2017-06-12 06:48] LABS: CREATININE 1.19 mg/dL (0.55-1.02); POTASSIUM 4.2 mmol/L (3.5-5.1)
[2017-06-12 08:00] VITALS: BP 120/58
[2017-06-12 12:00] VITALS: BP 118/80
[2017-06-12 16:00] VITALS: BP 97/52
[2017-06-12 20:00] VITALS: BP 104/65
[2017-06-13] VITALS: BP 112/53
[2017-06-13 01:00] VITALS: BP 116/54
[2017-06-13 06:23] LABS: BASO % 0.3 % (0.0-1.0); EOS # 0.1 10*3/uL (0.0-0.4); EOS % 1.4 % (1.0-4.0); HEMATOCRIT 24.9 % (37.0-47.0); LYMPH # 1.7 10*3/uL (1.3-4.4); LYMPH % 22.2 % (27.0-41.0); MEAN CELL VOLUME 92.2 fl (81.0-99.0); MEAN CORPUSCULAR HGB 29.6 pg (27.0-31.0); MEAN CORPUSCULAR HGB CONC 32.1 g/dl (33.0-37.0); MEAN PLATELET VOLUME 10.6 fl (9.6-12.3); MONO # 0.9 10*3/uL (0.1-1.0); MONO % 11.4 % (3.0-9.0); NEUT % 63.9 % (47.0-73.0); PLATELET COUNT AUTOMATED 241 10*3/uL (130-400); RED CELL DISTRI WIDTH 13.2 % (0-14.5); WHITE BLOOD COUNT 7.8 10*3/uL (4.8-10.8)
[2017-06-13 06:54] LABS: CREATININE 1.25 mg/dL (0.55-1.02); POTASSIUM 4.7 mmol/L (3.5-5.1)
[2017-06-13 08:00] VITALS: BP 116/69
[2017-06-13 12:00] VITALS: BP 125/69
[2017-06-13 16:00] VITALS: BP 151/79
[2017-06-13 20:00] VITALS: BP 135/61
[2017-06-14] VITALS: BP 122/50
[2017-06-14 07:03] LABS: BASO % 0.3 % (0.0-1.0); EOS # 0.1 10*3/uL (0.0-0.4); EOS % 1.1 % (1.0-4.0); HEMATOCRIT 26.8 % (37.0-47.0); HEMOGLOBIN 8.9 g/dl (12.0-16.0); LYMPH # 1.8 10*3/uL (1.3-4.4); LYMPH % 23.6 % (27.0-41.0); MEAN CELL VOLUME 93.1 fl (81.0-99.0); MEAN CORPUSCULAR HGB 30.9 pg (27.0-31.0); MEAN CORPUSCULAR HGB CONC 33.2 g/dl (33.0-37.0); MEAN PLATELET VOLUME 10.3 fl (9.6-12.3); MONO # 0.7 10*3/uL (0.1-1.0); MONO % 9.9 % (3.0-9.0); NEUT # 4.8 10*3/uL (2.3-7.9); NEUT % 64.3 % (47.0-73.0); PLATELET COUNT AUTOMATED 277 10*3/uL (130-400); RED BLOOD COUNT 2.88 10*6/uL (4.10-5.10); WHITE BLOOD COUNT 7.5 10*3/uL (4.8-10.8)
[2017-06-14 07:23] LABS: ALBUMIN 2.4 gm/dl (3.1-4.5); CREATININE 1.24 mg/dL (0.55-1.02); POTASSIUM 4.7 mmol/L (3.5-5.1); TOTAL PROTEIN 6.1 gm/dL (6.4-8.2)
[2017-06-14 08:00] VITALS: BP 115/57
[2017-06-14 12:00] VITALS: BP 135/62
[2017-06-14] MEDS ORDERED: XARE15TA PO (12:57)
[2017-06-14] MEDS ORDERED: LEVAQUIN750 M1 PO (12:57)
[2017-06-14] MEDS ORDERED: Isordil20 MG PO (12:57)
[2017-06-14] MEDS ORDERED: DILTIAZEM HCL30 MG PO (12:57)
== END 2017-06-14 13:22 | disposition other institution (70) | DRG 871 ==
LOC: ED 06:03 → 5E 07:56 → EDHOLD 07:56 → 4E 07:56 → 5E 08:05 → ICCU 06-08 10:03 → 4E 06-09 16:56
PROVIDERS: Emergency Medicine; Emergency Medicine Emergency Medical Services; Family Medicine Adult Medicine; Internal Medicine; Internal Medicine Critical Care Medicine; Internal Medicine Hospice and Palliative Medicine; Student in an Organized Health Care Education/Training Program
DX: A41.9 Sepsis, unspecified organism (principal); J18.9 Pneumonia, unspecified organism; N17.0 Acute kidney failure with tubular necrosis; J90 Pleural effusion, not elsewhere classified; I50.33 Acute on chronic diastolic (congestive) heart failure; D68.59 Other primary thrombophilia; E11.42 Type 2 diabetes mellitus with diabetic polyneuropathy; E11.22 Type 2 diabetes mellitus with diabetic chronic kidney disease; E11.65 Type 2 diabetes mellitus with hyperglycemia; E44.1 Mild protein-calorie malnutrition; E87.1 Hypo-osmolality and hyponatremia; J98.11 Atelectasis; Z68.1 Body mass index [BMI] 19.9 or less, adult; I13.0 Hypertensive heart and chronic kidney disease with heart failure and stage 1 through stage 4 chronic kidney disease, or unspecified chronic kidney disease; E67.8 Other specified hyperalimentation; E87.8 Other disorders of electrolyte and fluid balance, not elsewhere classified; I48.2 Chronic atrial fibrillation; I49.5 Sick sinus syndrome; R65.20 Severe sepsis without septic shock; K57.30 Diverticulosis of large intestine without perforation or abscess without bleeding; E86.0 Dehydration; E83.42 Hypomagnesemia; K21.9 Gastro-esophageal reflux disease without esophagitis; I25.10 Atherosclerotic heart disease of native coronary artery without angina pectoris; M05.79 Rheumatoid arthritis with rheumatoid factor of multiple sites without organ or systems involvement; D63.8 Anemia in other chronic diseases classified elsewhere; K44.9 Diaphragmatic hernia without obstruction or gangrene; M51.36 Other intervertebral disc degeneration, lumbar region; W01.0XXA Fall on same level from slipping, tripping and stumbling without subsequent striking against object, initial encounter; Y93.01 Activity, walking, marching and hiking; I95.9 Hypotension, unspecified; N18.9 Chronic kidney disease, unspecified; Z66 Do not resuscitate; Z51.5 Encounter for palliative care; I25.2 Old myocardial infarction; Y92.098 Other place in other non-institutional residence as the place of occurrence of the external cause; Y99.8 Other external cause status; Z79.899 Other long term (current) drug therapy; Z82.49 Family history of ischemic heart disease and other diseases of the circulatory system; Z82.0 Family history of epilepsy and other diseases of the nervous system; Z79.01 Long term (current) use of anticoagulants; Z90.711 Acquired absence of uterus with remaining cervical stump

== ENCOUNTER 2019-11-25 12:03 | Inpatient (IN) | payer MEDICARE ==
[~2019-11-25] VITALS: Ht 152.4 cm; Wt 61.0 kg
[~2019-11-25 12:03] MED LIST changes: +DILTIAZEM HCL30 MG PO; +Isordil20 MG PO; +LASIX40 MG PO; +LEVAQUIN750 M1 PO; +XARE15TA PO
[2019-11-25 12:16] VITALS: BP 112/41
[2019-11-25 12:55] LABS: MEAN CELL VOLUME 92.3 fl (81.0-99.0); MEAN CORPUSCULAR HGB 29.5 pg (27.0-31.0); MEAN PLATELET VOLUME 11.4 fl (9.6-12.3); PLATELET COUNT AUTOMATED 179 10*3/uL (130-400); RED BLOOD COUNT 3.25 10*6/uL (4.10-5.10); RED CELL DISTRI WIDTH 14.4 % (0-14.5); WHITE BLOOD COUNT 10.2 10*3/uL (4.8-10.8)
[2019-11-25 13:07] LABS: INTERNATIONAL NORM RATIO 1.5 (2.0-3.5)
[2019-11-25 13:11] LABS: ALBUMIN 3.4 gm/dl (3.1-4.5); CREATININE 2.19 mg/dL (0.55-1.02); POTASSIUM 5.8 mmol/L (3.5-5.1); TOTAL PROTEIN 6.8 gm/dL (6.4-8.2)
[2019-11-25 13:32] LABS: BILIRUBIN NEGATIVE (NEGATIVE); BLOOD 3+ (NEGATIVE); CLARITY CLOUDY (CLEAR); COLOR YELLOW (YELLOW); GLUCOSE NEGATIVE (NEGATIVE); KETONE NEGATIVE (NEGATIVE); LEUKO ESTERASE 2+ (NEGATIVE); NITRITE NEGATIVE (NEGATIVE); UROBILINOGEN 0.2 E.U./dl (0.2-1.0)
[2019-11-25 13:37] LABS: BURR CELLS FEW; PLATELET SUFFICIENCY NORMAL (NORMAL); TOTAL CELLS COUNTED 100 #CELLS
[2019-11-25 13:44] LABS: EPITHELIAL CELLS 16-20; RBC TNTC rbc/hpf (0-2); WBC TNTC wbc/hpf (0-5)
[2019-11-25 13:46] LABS: BACTERIA 1+
[2019-11-25 14:00] VITALS: BP 137/60
[2019-11-25] MEDS ORDERED: OMEPRAZOLE MAGN20 MG PO (16:40)
[2019-11-25] MEDS ORDERED: METHENAMINE HIPP1 G1 PO (16:41)
[2019-11-25] MEDS ORDERED: GLIPIZIDE5 MG PO (16:42)
[2019-11-25] MEDS ORDERED: Imdur SA60 MG PO (16:42)
[2019-11-25] MEDS ORDERED: LISINOPRIL2.5 MG PO (16:43)
[2019-11-25] MEDS ORDERED: KLOR-CON 1010 ME1 PO (16:43)
[2019-11-25] MEDS ORDERED: PRAVACHOL40 MG PO (16:43)
[2019-11-25] MEDS ORDERED: TRESIBA100 UNIT/1 SQ (16:44)
[2019-11-25] MEDS ORDERED: TRAD5TAB1 PO (16:44)
[2019-11-25] MEDS ORDERED: ESTRACE 0.01%42.5 GM V (16:45)
[2019-11-25] MEDS ORDERED: METHYLFOLATE PO (16:45)
[2019-11-25] MEDS ORDERED: MYRBETRIQ25 M1 PO (16:46)
[2019-11-25] MEDS ORDERED: Diltiazem HCl120 MG PO (16:47)
[2019-11-25] MEDS ORDERED: PLAQUENIL200 MG PO (16:48)
[2019-11-25 17:30] VITALS: BP 137/60
[2019-11-25 18:00] VITALS: BP 137/60
[2019-11-25 20:00] VITALS: BP 145/62
[2019-11-26 06:36] LABS: BASO % 0.1 % (0.0-1.0); HEMATOCRIT 30.4 % (37.0-47.0); LYMPH % 9.9 % (27.0-41.0); MEAN CELL VOLUME 89.9 fl (81.0-99.0); MEAN CORPUSCULAR HGB 28.7 pg (27.0-31.0); MEAN CORPUSCULAR HGB CONC 31.9 g/dl (33.0-37.0); MEAN PLATELET VOLUME 11.4 fl (9.6-12.3); MONO # 0.7 10*3/uL (0.1-1.0); MONO % 6.9 % (3.0-9.0); NEUT % 80.7 % (47.0-73.0); PLATELET COUNT AUTOMATED 182 10*3/uL (130-400); RED BLOOD COUNT 3.38 10*6/uL (4.10-5.10); RED CELL DISTRI WIDTH 14.4 % (0-14.5); WHITE BLOOD COUNT 9.9 10*3/uL (4.8-10.8)
[2019-11-26 06:53] LABS: ACT PARTIAL THROMBO TIME 27.6 SECONDS (20.0-32.1); ALBUMIN 3.3 gm/dl (3.1-4.5); CREATININE 1.13 mg/dL (0.55-1.02); INTERNATIONAL NORM RATIO 1.2 (2.0-3.5); TOTAL PROTEIN 6.7 gm/dL (6.4-8.2)
[2019-11-26 07:01] LABS: THYROID STIM HORMONE (HS) 1.4 uIU/ml (0.358-4.75)
[2019-11-26 07:02] LABS: POTASSIUM 3.7 mmol/L (3.5-5.1)
[2019-11-26 07:39] LABS: VITAMIN D, 25-HYDROXY 57.8 ng/mL (30-100)
[2019-11-26 08:00] VITALS: BP 143/67
[2019-11-26 12:00] VITALS: BP 129/53
[2019-11-26 16:00] VITALS: BP 143/52
[2019-11-26 20:00] VITALS: BP 132/67
[2019-11-27] VITALS: BP 134/65
[2019-11-27 06:40] LABS: BASO % 0.1 % (0.0-1.0); HEMATOCRIT 27.5 % (37.0-47.0); LYMPH # 1.4 10*3/uL (1.3-4.4); LYMPH % 12.7 % (27.0-41.0); MEAN CELL VOLUME 91.7 fl (81.0-99.0); MEAN CORPUSCULAR HGB 29.3 pg (27.0-31.0); MEAN PLATELET VOLUME 11.4 fl (9.6-12.3); MONO % 8.9 % (3.0-9.0); NEUT # 8.2 10*3/uL (2.3-7.9); NEUT % 76.5 % (47.0-73.0); PLATELET COUNT AUTOMATED 161 10*3/uL (130-400); RED CELL DISTRI WIDTH 14.6 % (0-14.5); WHITE BLOOD COUNT 10.7 10*3/uL (4.8-10.8)
[2019-11-27 06:50] LABS: CHLORIDE 107 mmol/L (98-107); POTASSIUM 3.6 mmol/L (3.5-5.1); SODIUM 137 mmol/L (136-145)
[2019-11-27 06:51] LABS: BUN 34 mg/dl (7-24)
[2019-11-27 08:00] VITALS: BP 135/64
[2019-11-27 12:00] VITALS: BP 119/50
[2019-11-27 16:00] VITALS: BP 126/48
[2019-11-27 20:00] VITALS: BP 154/52
[2019-11-27 23:41] VITALS: BP 134/49
[2019-11-28 08:00] VITALS: BP 133/69
[2019-11-28 12:00] VITALS: BP 134/60
[2019-11-28 16:00] VITALS: BP 101/49
[2019-11-28 20:00] VITALS: BP 136/48
[2019-11-29] VITALS: BP 139/45
[2019-11-29 06:40] LABS: CREATININE 1.37 mg/dL (0.55-1.02); POTASSIUM 3.8 mmol/L (3.5-5.1)
[2019-11-29 08:00] VITALS: BP 149/63
[2019-11-29 11:13] LABS: URINE CHLORIDE, RANDOM < 10 mmol/L
[2019-11-29 12:00] VITALS: BP 115/65
[2019-11-29 16:00] VITALS: BP 114/70
[2019-11-29 20:00] VITALS: BP 155/70
[2019-11-30] VITALS: BP 147/51
[2019-11-30 06:37] LABS: ALBUMIN 2.3 gm/dl (3.1-4.5); POTASSIUM 4.2 mmol/L (3.5-5.1)
[2019-11-30 06:41] LABS: CREATININE 1.52 mg/dL (0.55-1.02); TOTAL PROTEIN 5.4 gm/dL (6.4-8.2)
[2019-11-30 08:00] VITALS: BP 156/53
[2019-11-30 12:00] VITALS: BP 149/50
[2019-11-30 16:00] VITALS: BP 144/57
[2019-11-30 17:02] LABS: BILIRUBIN NEGATIVE; BLOOD TRACE-LYSED (NEGATIVE); COLOR YELLOW (YELLOW); GLUCOSE NEGATIVE; KETONE NEGATIVE; LEUKO ESTERASE 2+ (NEGATIVE); NITRITE NEGATIVE (NEGATIVE); SPECIFIC GRAVITY 1.015 (1.005-1.030); UROBILINOGEN 0.2 E.U./dl (0.2-1.0)
[2019-11-30 17:03] LABS: CLARITY SL CLOUDY (CLEAR)
[2019-11-30 17:10] LABS: BACTERIA 1+; MUCOUS TRACE; WBC 21-30 wbc/hpf (0-5)
[2019-11-30 17:13] LABS: URINE CHLORIDE, RANDOM < 10 mmol/L
[2019-11-30 20:00] VITALS: BP 154/57
[2019-12-01] VITALS: BP 152/81
[2019-12-01 06:45] LABS: MEAN CELL VOLUME 88.7 fl (81.0-99.0); MEAN CORPUSCULAR HGB CONC 32.7 g/dl (33.0-37.0); MEAN PLATELET VOLUME 10.8 fl (9.6-12.3); PLATELET COUNT AUTOMATED 190 10*3/uL (130-400); RED BLOOD COUNT 2.93 10*6/uL (4.10-5.10); RED CELL DISTRI WIDTH 13.5 % (0-14.5)
[2019-12-01 07:02] LABS: CREATININE 1.22 mg/dL (0.55-1.02); POTASSIUM 4.7 mmol/L (3.5-5.1)
[2019-12-01 07:30] LABS: TOTAL CELLS COUNTED 100 #CELLS
[2019-12-01 07:31] LABS: BURR CELLS FEW; PLATELET SUFFICIENCY NORMAL (NORMAL)
[2019-12-01 07:32] LABS: OVALOCYTES FEW; SCHISTOCYTES FEW
[2019-12-01 08:00] VITALS: BP 165/48
[2019-12-01 12:01] VITALS: BP 123/73
[2019-12-01] MEDS ORDERED: FLUCONAZOLE100 MG PO (14:42)
[2019-12-01 16:03] VITALS: BP 153/57
[2019-12-01] MEDS ORDERED: LASIX40 MG PO (16:09)
[2019-12-01] MEDS ORDERED: KLOR-CON 1010 ME1 PO (16:20)
== END 2019-12-01 17:13 | disposition home health service (06) | DRG 682 ==
LOC: ED 12:03 → EDHOLD 13:55 → 4E 13:55 → EDHOLD 14:45 → 4E 16:00
PROVIDERS: Family Medicine; Hospitalist; Internal Medicine; Internal Medicine Nephrology; Student in an Organized Health Care Education/Training Program; ADMIT Internal Medicine; ATTEND Internal Medicine
DX: N17.0 Acute kidney failure with tubular necrosis (principal); J96.00 Acute respiratory failure, unspecified whether with hypoxia or hypercapnia; I48.20 Chronic atrial fibrillation, unspecified; E87.1 Hypo-osmolality and hyponatremia; I13.0 Hypertensive heart and chronic kidney disease with heart failure and stage 1 through stage 4 chronic kidney disease, or unspecified chronic kidney disease; N13.6 Pyonephrosis; E86.0 Dehydration; K21.9 Gastro-esophageal reflux disease without esophagitis; I25.10 Atherosclerotic heart disease of native coronary artery without angina pectoris; E11.621 Type 2 diabetes mellitus with foot ulcer; L97.519 Non-pressure chronic ulcer of other part of right foot with unspecified severity; Z66 Do not resuscitate; Z51.5 Encounter for palliative care; K59.00 Constipation, unspecified; M06.9 Rheumatoid arthritis, unspecified; M51.36 Other intervertebral disc degeneration, lumbar region; E87.5 Hyperkalemia; E83.42 Hypomagnesemia; E11.65 Type 2 diabetes mellitus with hyperglycemia; R33.9 Retention of urine, unspecified; R31.9 Hematuria, unspecified; R00.0 Tachycardia, unspecified; B96.20 Unspecified Escherichia coli [E. coli] as the cause of diseases classified elsewhere; B37.3 Candidiasis of vulva and vagina; I50.9 Heart failure, unspecified; N18.9 Chronic kidney disease, unspecified; E11.22 Type 2 diabetes mellitus with diabetic chronic kidney disease; I49.5 Sick sinus syndrome; D64.9 Anemia, unspecified; R53.1 Weakness; E11.42 Type 2 diabetes mellitus with diabetic polyneuropathy; M20.42 Other hammer toe(s) (acquired), left foot; M20.41 Other hammer toe(s) (acquired), right foot; S90.411A Abrasion, right great toe, initial encounter; I25.2 Old myocardial infarction; Z90.710 Acquired absence of both cervix and uterus; Z82.49 Family history of ischemic heart disease and other diseases of the circulatory system; Z88.1 Allergy status to other antibiotic agents; Z79.899 Other long term (current) drug therapy; Z79.84 Long term (current) use of oral hypoglycemic drugs; X58.XXXA Exposure to other specified factors, initial encounter; Y93.89 Activity, other specified; Y92.89 Other specified places as the place of occurrence of the external cause; Y99.8 Other external cause status

== ENCOUNTER 2019-12-06 20:33 | Emergency (ER) | payer MEDICARE ==
[~2019-12-06] VITALS: Wt 53.1 kg
[~2019-12-06 20:33] MED LIST changes: +Diltiazem HCl120 MG PO; +ESTRACE 0.01%42.5 GM V; +FLUCONAZOLE100 MG PO; +GLIPIZIDE5 MG PO; +Imdur SA60 MG PO; +KLOR-CON 1010 ME1 PO; +LISINOPRIL2.5 MG PO; +METHENAMINE HIPP1 G1 PO; +METHYLFOLATE PO; +MYRBETRIQ25 M1 PO; +OMEPRAZOLE MAGN20 MG PO; +PRAVACHOL40 MG PO; +TRAD5TAB1 PO; +TRESIBA100 UNIT/1 SQ
[2019-12-06 22:24] LABS: HEMATOCRIT 26.1 % (37.0-47.0); MEAN CELL VOLUME 89.1 fl (81.0-99.0); MEAN CORPUSCULAR HGB 28.7 pg (27.0-31.0); MEAN CORPUSCULAR HGB CONC 32.2 g/dl (33.0-37.0); MEAN PLATELET VOLUME 10.4 fl (9.6-12.3); PLATELET COUNT AUTOMATED 239 10*3/uL (130-400); RED BLOOD COUNT 2.93 10*6/uL (4.10-5.10); WHITE BLOOD COUNT 11.9 10*3/uL (4.8-10.8)
[2019-12-06 22:40] LABS: ALBUMIN 2.9 gm/dl (3.1-4.5); CREATININE 1.12 mg/dL (0.55-1.02); POTASSIUM 3.8 mmol/L (3.5-5.1); TOTAL PROTEIN 6.7 gm/dL (6.4-8.2)
[2019-12-06 22:42] LABS: PLATELET SUFFICIENCY NORMAL (NORMAL); TOTAL CELLS COUNTED 100 #CELLS
[2019-12-07] MEDS ORDERED: AUGMENTIN 875875 MG PO (00:14)
== END 2019-12-07 00:50 | disposition home or self-care (01) ==
LOC: ED 20:33
PROVIDERS: Emergency Medicine
DX: S60.461A Insect bite (nonvenomous) of left index finger, initial encounter (principal); R60.0 Localized edema; I11.0 Hypertensive heart disease with heart failure; I50.30 Unspecified diastolic (congestive) heart failure; E11.9 Type 2 diabetes mellitus without complications; K21.9 Gastro-esophageal reflux disease without esophagitis; I48.91 Unspecified atrial fibrillation; I25.10 Atherosclerotic heart disease of native coronary artery without angina pectoris; I25.2 Old myocardial infarction; Z88.8 Allergy status to other drugs, medicaments and biological substances; Z79.899 Other long term (current) drug therapy; Z79.2 Long term (current) use of antibiotics; Z90.710 Acquired absence of both cervix and uterus; W57.XXXA Bitten or stung by nonvenomous insect and other nonvenomous arthropods, initial encounter; Y93.89 Activity, other specified; Y92.89 Other specified places as the place of occurrence of the external cause; Y99.8 Other external cause status

== ENCOUNTER → 2020-03-14 | Outpatient (CLI) | payer MEDICARE ==
[~2020-03-14] MED LIST changes: +AUGMENTIN 875875 MG PO
== END | disposition home or self-care (01) ==
LOC: US 13:00
PROVIDERS: ATTEND Internal Medicine Nephrology
DX: N18.32 Chronic kidney disease, stage 3b (principal)